=== PATIENT | female | born 1985 | race Two or more races ===

== ENCOUNTER 2017-02-12 16:02 | Inpatient (IN) | payer MEDICAID ==
[2017-02-12 16:45] LABS: APPEARANCE,URINE SLIGHTLY-CLOUDY; BILIRUBIN,URINE NEGATIVE (NEGATIVE); GLUCOSE, URINE NEGATIVE (NEGATIVE); KETONES,URINE NEGATIVE (NEGATIVE); LEUKOCYTE ESTERASE,URINE SMALL (NEGATIVE); NITRITE,URINE NEGATIVE (NEGATIVE); PROTEIN,URINE NEGATIVE (NEGATIVE); URINE SPECIFIC GRAVITY 1.006; UROBILINOGEN,URINE NEGATIVE mg/dL (<2.0)
[2017-02-12 16:50] LABS: AMNISURE (ROM) POSITIVE (NEGATIVE)
[2017-02-12] MEDS ORDERED: RINGERS SOLUTION,LACTATED 1,000 ML IV ONE (17:02)
[2017-02-12] MEDS ORDERED: FENTANYL/BUPIVACAINE/NS/PF 100 ML EPI PRN (17:02)
[2017-02-12] MEDS ORDERED: BENZOIN/ALOE VERA/STORAX/TOLU TINCTURE 60 ML TP PRN (17:02)
[2017-02-12] MEDS ORDERED: BUPIVACAINE HCL 0.25 % INJ/PF (2.5 MG/1 ML) 30 ML VIAL INFIL ONE (17:02)
[2017-02-12 17:09] LABS: URINE BARBITURATES SCREEN NEGATIVE; URINE METHADONE SCREEN NEGATIVE; URINE OPIATES LOW NEGATIVE; URINE PHENCYCLIDINE SCREEN NEGATIVE
[2017-02-12] MEDS ORDERED: PENICILLIN G-K 5 MILLION UNIT VIAL ONE ×3 (17:17→22:30)
[2017-02-12] MEDS ORDERED: OXYTOCIN/NORMAL SALINE 1,000 ML IV PRN (18:12)
[2017-02-12] MEDS ORDERED: OXYTOCIN/NORMAL SALINE 20 UNIT/1,000 ML RTUINJ ONE (18:15)
[2017-02-12 18:16] LABS: ABSOLUTE LYMPHOCYTES (AUTO) 1.7 10^3/uL (0.5-4.7); ABSOLUTE MONOCYTES (AUTO) 0.8 10^3/uL (0.1-1.4); ABSOLUTE NEUT (AUTO) 9.4 10^3/uL (1.7-8.2); BASOPHILS % (AUTO) 0.3 % (0-2); EOSINOPHILS % (AUTO) 0.4 % (0-6); HEMATOCRIT 35.6 % (36.0-47.0); HEMOGLOBIN 11.7 g/dL (12.0-15.5); HGB HCT DIFFERENCE -0.5; LYMPHOCYTES % (AUTO) 14.4 % (13-45); MEAN CORPUSCULAR HEMOGLOBIN 27.6 pg (27.0-33.4); MEAN CORPUSCULAR HGB CONC 32.9 g/dL (32.0-36.0); MEAN CORPUSCULAR VOLUME 84 fl (80-97); RED BLOOD COUNT 4.25 10^6/uL (3.72-5.28); RED CELL DISTRIBUTION WIDTH 14.8 % (11.5-14.0); SEGMENTED NEUTROPHILS % (AUTO) 77.9 % (42-78)
[2017-02-12] MEDS: RINGERS SOLUTION,LACTATED 1,000 ML IV PRN ×2 (18:22→19:34)
[2017-02-12] MEDS ORDERED: EPHEDRINE SULFATE INJ 50 MG/1 ML AMPULE ONE (18:45)
[2017-02-12] MEDS ORDERED: FENTANYL/BUPIVACAINE/NS/PF 200 MCG/100 ML RTUINJ EPI ONE (18:46)
[2017-02-12] MEDS ORDERED: BUPIVACAINE HCL 0.25 % INJ/PF (2.5 MG/1 ML) 30 ML VIAL ONE (18:46)
--- NOTE | 2017-02-12 20:01 | L&D Flow Sheet ---
LD Flowsheet Datetime Report Generated by CPN: 02/12/2017 20:00 Datetime: 02/12/2017 19:59 NBP Sys/Brandi/Mean (mmHg): 118 (QS system process) : 66 (QS system process) : 86 (QS system process) Pulse: 79 (QS system process) LaborFlag: Antepartum (QS system process) Datetime: 02/12/2017 19:58 NBP Sys/Brandi/Mean (mmHg): 134 (QS system process) : 67 (QS system process) : 94 (QS system process) Pulse: 84 (QS system process) Anesthesia Epidural Procedure: Test Dose (Ester Bazzi, RN) LaborFlag: Antepartum (QS system process) Datetime: 02/12/2017 19:57 NBP Sys/Brandi/Mean (mmHg): 137 (QS system process) : 77 (QS system process) : 102 (QS system process) Pulse: 85 (QS system process) Pulse: 99 (QS system process) SpO2 (%): 98 (QS system process) Anesthesia Epidural Procedure: Cath Placed (Ester Bazzi, RN) LaborFlag: Antepartum (QS system process) Datetime: 02/12/2017 19:56 NBP Sys/Brandi/Mean (mmHg): 135 (QS system process) : 76 (QS system process) : 99 (QS system process) Pulse: 81 (QS system process) LaborFlag: Antepartum (QS system process) Datetime: 02/12/2017 19:55 NBP Sys/Brandi/Mean (mmHg): 124 (QS system process) : 73 (QS system process) : 91 (QS system process) Pulse: 79 (QS system process) LaborFlag: Antepartum (QS system process) Datetime: 02/12/2017 19:54 NBP Sys/Brandi/Mean (mmHg): 127 (QS system process) : 77 (QS system process) : 96 (QS system process) Pulse: 92 (QS system process) LaborFlag: Antepartum (QS system process) Datetime: 02/12/2017 19:53 NBP Sys/Brandi/Mean (mmHg): 116 (QS system process) : 71 (QS system process) : 89 (QS system process) Pulse: 83 (QS system process) LaborFlag: Antepartum (QS system process) Datetime: 02/12/2017 19:52 NBP Sys/Brandi/Mean (mmHg): 122 (QS system process) : 74 (QS system process) : 92 (QS system process) Pulse: 82 (QS system process) Pulse: 81 (QS system process) SpO2 (%): 99 (QS system process) LaborFlag: Antepartum (QS system process) Datetime: 02/12/2017 19:51 NBP Sys/Brandi/Mean (mmHg): 117 (QS system process) : 77 (QS system process) : 91 (QS system process) Pulse: 82 (QS system process) LaborFlag: Antepartum (QS system process) Datetime: 02/12/2017 19:50 NBP Sys/Brandi/Mean (mmHg): 118 (QS system process) : 78 (QS system process) : 92 (QS system process) Pulse: 88 (QS system process) LaborFlag: Antepartum (QS system process) Datetime: 02/12/2017 19:48 NBP Sys/Brandi/Mean (mmHg): 114 (QS system process) NBP Sys/Brandi/Mean (mmHg): 113 (QS system process) : 75 (QS system process) : 72 (QS system process) : 88 (QS system process) : 87 (QS system process) Pulse: 81 (QS system process) Pulse: 79 (QS system process) LaborFlag: Antepartum (QS system process) Datetime: 02/12/2017 19:47 Pulse: 79 (QS system process) SpO2 (%): 99 (QS system process) LaborFlag: Antepartum (QS system process) Datetime: 02/12/2017 19:45 Communication Communication: Provider at Bedside (Ester Bazzi, RN) Datetime: 02/12/2017 19:34 Patient Care IV/Blood Work: New IV Bag Hung (Ester Bazzi, RN) Datetime: 02/12/2017 19:30 Uterine Activity Monitor Mode: External; Palpation (Ana Maria Barney, RN) Frequency (min): 9-10 (Ana Maria Barney, RN) Quality: Mild (Ana Maria Barney, RN) Duration (sec): 90-100 (Ana Maria Barnye, RN) Resting Tone (Palpate): Relaxed (Ana Maria Barney, RN) Assessment A Monitor Mode: External US (Ana Maria Barney, RN) FHR Baseline Rate : 150 (Ana Maria Barney, RN) Variability: Moderate 6-25 bpm (Ana Maria Barney, RN) Accelerations: 15X15 (Ana Maria Barney, RN) Decelerations: None (Ana Maria Barney, RN) Medications Pitocin (milliunit): Pitocin Remains (milliunits) @ (Annotations: 6) (Ana Maria Barney, RN) Datetime: 02/12/2017 19:24 Medications Pitocin (milliunit): Pitocin Increased to (milliunits) @ 6 (Ana Maria Barney, RN) Datetime: 02/12/2017 19:21 Communication Communication: RN at Bedside; Report Given to @ B. Bazzi, RN (Ana Maria Barney RN) Datetime: 02/12/2017 19:15 Uterine Activity Monitor Mode: External; Palpation (Ana Maria Barney RN) Frequency (min): x1 (Ana Maria Barney RN) Quality: Mild (Ana Maria Barney RN) Duration (sec): 110 (Ana Maria Barney RN) Resting Tone (Palpate): Relaxed (Ana Maria Barney, RN) Assessment A Monitor Mode: External US (Ana Maria Barney, RN) FHR Baseline Rate : 145 (Ana Maria Barney, RN) Variability: Moderate 6-25 bpm (Ana Maria Barney, RN) Accelerations: 15X15 (Ana Maria Barney, RN) Decelerations: None (Ana Maria Barney, RN) Medications Pitocin (milliunit): Pitocin Remains (milliunits) @ (Annotations: 4) (Ana Maria Barney, RN) Datetime: 02/12/2017 19:00 Uterine Activity Monitor Mode: External; Palpation (Ana Maria Barney, RN) Frequency (min): Occasional (Ana Maria Barney, RN) Quality: Mild (Ana Maria Barney, RN) Duration (sec): 70-120 (Ana Maria Barney, RN) Resting Tone (Palpate): Relaxed (Ana Maria Barney, RN) Assessment A Monitor Mode: External US (Ana Maria Barney, RN) FHR Baseline Rate : 145 (Ana Maria Barney, RN) Variability: Moderate 6-25 bpm (Ana Maria Barney, RN) Accelerations: 15X15 (Ana Maria Barney, RN) Decelerations: None (Ana Maria Barney, RN) Medications Pitocin (milliunit): Pitocin Remains (milliunits) @ (Annotations: 4) (Ana Maria Barney, RN) Datetime: 02/12/2017 18:56 Medications Pitocin (milliunit): Pitocin Increased to (milliunits) @ 4 (Ana Maria Barney, RN) Datetime: 02/12/2017 18:45 Uterine Activity Monitor Mode: External; Palpation (Ana Maria Barney, RN) Frequency (min): x2 (Ana Maria Barney, RN) Quality: Mild (Ana Maria Barney, RN) Duration (sec): 80-110 (Ana Maria Barney, RN) Resting Tone (Palpate): Relaxed (Ana Maria Barney, RN) Assessment A Monitor Mode: External US (Ana Maria Barney, RN) FHR Baseline Rate : 145 (Ana Maria Barney, RN) Variability: Moderate 6-25 bpm (Ana Maria Barney, RN) Accelerations: 15X15 (Ana Maria Barney, RN) Decelerations: None (Ana Maria Barney, RN) Medications Pitocin (milliunit): Pitocin Remains (milliunits) @ (Annotations: 2) (Ana Maria Barney, RN) Datetime: 02/12/2017 18:30 Uterine Activity Monitor Mode: External; Palpation (Ana Maria Barney, RN) Frequency (min): x1 (Ana Maria Barney, RN) Quality: Mild (Ana Maria Barney, RN) Duration (sec): 110 (Ana Maria Barney, RN) Resting Tone (Palpate): Relaxed (Ana Maria Barney, RN) Assessment A Monitor Mode: External US (Ana Maria Solorioon, RN) FHR Baseline Rate : 140 (Ana Mariajulian Solorioon, RN) Variability: Minimal - Undetectable to <=5 bpm (Ana Maria Solorioon, RN) Accelerations: 15X15 (Ana Maria Barney, RN) Decelerations: None (Ana Maria Barney, RN) Medications Pitocin (milliunit): Pitocin Remains (milliunits) @ (Annotations: 2) (Ana Maria Solorioon, RN) Datetime: 02/12/2017 18:23 Medications Pitocin (milliunit): Pitocin Started (milliunits) @ 2 (Ana Maria Barney RN) Datetime: 02/12/2017 18:22 Antibiotics: Penicillin IV (Units) @ 5,000,000 (Ana Maria Barney RN) Datetime: 02/12/2017 18:18 NBP Sys/Brandi/Mean (mmHg): 123 (QS system process) : 71 (QS system process) : 91 (QS system process) Pulse: 90 (QS system process) Temperature (F): 98.6 (Ana Maria Barney RN) Temperature (C): 37.0 (QS system process) Temperature Route: Oral (Ana Maria Barney RN) LaborFlag: Antepartum (QS system process) Datetime: 02/12/2017 18:15 Uterine Activity Monitor Mode: External; Palpation (Ana Maria Barney, RN) Frequency (min): x1 (Ana Maria Barney, RN) Quality: Mild (Ana Maria Solorioon, RN) Duration (sec): 100 (Ana Maria Solorioon, RN) Resting Tone (Palpate): Relaxed (Ana Maria Barney, RN) Assessment A Monitor Mode: External US (Ana Maria Barney, RN) FHR Baseline Rate : 145 (Ana Maria Barney, RN) Variability: Minimal - Undetectable to <=5 bpm (Ana Maria Barney, RN) Accelerations: 15X15 (Ana Maria Barney, RN) Decelerations: None (Ana Maria Barney, RN) Datetime: 02/12/2017 18:00 Uterine Activity Monitor Mode: External; Palpation (Ana Maria Barney, RN) Frequency (min): x1 (Ana Maria Barney, RN) Quality: Mild (Ana Maria Barney, RN) Duration (sec): 120 (Ana Maria Barney, RN) Resting Tone (Palpate): Relaxed (Ana Maria Barney, RN) Assessment A Monitor Mode: External US (Ana Maria Barney, RN) FHR Baseline Rate : 140 (Ana Maria Barney, RN) Variability: Minimal - Undetectable to <=5 bpm (Ana Maria Barney, RN) Accelerations: 15X15 (Ana Maria Barney, RN) Decelerations: None (Ana Maria Barney, RN) Datetime: 02/12/2017 17:48 NBP Sys/Brandi/Mean (mmHg): 115 (QS system process) : 79 (QS system process) : 90 (QS system process) Pulse: 88 (QS system process) LaborFlag: Antepartum (QS system process) Datetime: 02/12/2017 17:45 Uterine Activity Monitor Mode: External; Palpation (Ana Maria Barney, RN) Frequency (min): occasional (Ana Maria Barney, RN) Quality: Mild (Ana Maria Barney, RN) Duration (sec): 90-120 (Ana Maria Barney, RN) Resting Tone (Palpate): Relaxed (Ana Maria Barney, RN) Assessment A Monitor Mode: External US (Ana Maria Barney, RN) FHR Baseline Rate : 145 (Ana Maria Barney, RN) Variability: Moderate 6-25 bpm (Ana Maria Barney, RN) Accelerations: 15X15 (Ana Maria Barney, RN) Decelerations: None (Ana Maria Barney, RN) Datetime: 02/12/2017 17:15 Uterine Activity Monitor Mode: External; Palpation (Ana Maria Barney, RN) Frequency (min): occasional (Ana Maria Barney, RN) Quality: Mild (Ana Maria Barney, RN) Duration (sec): 60-80 (Ana Maria Barney, RN) Resting Tone (Palpate): Relaxed (Ana Maria Barney, RN) Assessment A Monitor Mode: External US (Ana Maria Barney, RN) FHR Baseline Rate : 145 (Ana Maria Barney, RN) Variability: Moderate 6-25 bpm (Ana Maria Barney, RN) Accelerations: 15X15 (Ana Maria Barney, RN) Decelerations: None (Ana Maria Barney, RN) Datetime: 02/12/2017 16:50 NBP Sys/Brandi/Mean (mmHg): 96 (QS system process) : 52 (QS system process) : 69 (QS system process) Pulse: 84 (QS system process) LaborFlag: Antepartum (QS system process) Datetime: 02/12/2017 16:48 NBP Sys/Brandi/Mean (mmHg): 96 (QS system process) : 53 (QS system process) : 69 (QS system process) Pulse: 86 (QS system process) LaborFlag: Antepartum (QS system process) Datetime: 02/12/2017 16:44 Pain Pain Scale: 2 (Ana Maria Barney RN) Pain Presence: Intermittent (Ana Maria Barney RN) Pain Type: Cramping (Ana Maria Barney RN) Pain Location: Abdomen; Back (Ana Maria Barney RN) Pain Goal: 0 (Ana Maria Barney RN) Pain Relief Measures: Comfort Measures (Ana Maria Barney RN) Pain Coping: Breathing Through Contractions (Ana Maria Barney RN) Vaginal Exam Vaginal Bleeding: None (Ana Maria Barney, CHIP) Maternal Assessment Level of Consciousness: Fully Conscious (Ana Maria Barney RN) DTR's/Clonus: DTRs 1+ (Ana Maria Barney RN) Headache: Denies (Ana Maria Barney RN) Breath Sounds, Left: Clear and Equal (Ana Maria Barney RN) Breath Sounds, Right: Clear and Equal (Ana Maria Barney RN) Nausea/Vomiting: Denies (Ana Maria Barney RN) RUQ Epigastric Pain: Denies (Ana Maria Barney, RN) LaborFlag: Antepartum (QS system process) Datetime: 02/12/2017 16:41 Patient Position/Activity: Right Tilt; Semi-Fowlers (Ana Maria Barney, RN) Datetime: 02/12/2017 16:38 Comments: Monitors applied, explained to pt. (Ana Maria Barney, RN) Datetime: 02/12/2017 16:31 Vital Signs Stage of : Antepartum Rachel Barney RN)
[2017-02-12] MEDS ORDERED: PENICILLIN G-K 5 MILLION UNIT VIAL IV SCH (22:30)
[2017-02-12] MEDS ORDERED: PENICILLIN G-K 5 MILLION UNIT VIAL IV PRN (22:36)
[2017-02-12] MEDS ORDERED: MISOPROSTOL 0.2 MG TABLET ONE (22:41)
[2017-02-12] MEDS ORDERED: LIDOCAINE 1% INJ-PF (10 MG/ML) 30 ML SDV ONE (22:41)
[2017-02-12] MEDS ORDERED: OXYTOCIN/NORMAL SALINE 0 UNIT/0 ML RTUINJ ONE (22:42)
[2017-02-12] MEDS ORDERED: PENICILLIN G POTASSIUM 2,500,000 UNIT in DEXTROSE 5%-WATER 50 ML IV SCH (22:45)
[2017-02-13] MEDS ORDERED: OXYTOCIN/NORMAL SALINE 1,000 ML IV PRN (00:43)
[2017-02-13] MEDS ORDERED: DIPHENHYDRAMINE HCL 25 MG CAPSULE PO PRN (00:43)
[2017-02-13] MEDS ORDERED: PROMETHAZINE HCL INJ 25 MG/1 ML VIAL IV PRN (00:43)
[2017-02-13] MEDS ORDERED: DIBUCAINE 1% OINTMENT 28 GM TP PRN (00:43)
[2017-02-13] MEDS ORDERED: ACETAMINOPHEN WITH CODEINE #3 TABLET PO PRN ×2 (00:43)
[2017-02-13] MEDS ORDERED: MEASLES,MUMPS&RUBELLA VACC/PF 0.5 ML VIAL SUBCUT PRN (00:43)
[2017-02-13] MEDS ORDERED: PROMETHAZINE HCL 25 MG TABLET PO PRN (00:43)
[2017-02-13] MEDS ORDERED: PSEUDOEPHEDRINE HCL 30 MG TABLET PO PRN (00:43)
[2017-02-13] MEDS ORDERED: ACETAMINOPHEN 650 MG SUPP.RECT PR PRN (00:43)
[2017-02-13] MEDS ORDERED: MAGNESIUM HYDROXIDE SUSP 30 ML UDCUP PO PRN (00:43)
[2017-02-13] MEDS ORDERED: BENZOCAINE/MENTHOL AEROSOL SPRAY 56 ML TOP PRN (00:43)
[2017-02-13] MEDS ORDERED: ZOLPIDEM TARTRATE 5 MG TABLET PO PRN (00:43)
[2017-02-13] MEDS ORDERED: DIPH/PERTUSS(ACELL)/TETANUS VAC/PF 0.5 ML SYR (>=10YO) IM PRN (00:43)
[2017-02-13] MEDS ORDERED: NA PHOS,M-B/NA PHOS,DI-BA (ADULT) 133 ML ENEMA PR PRN (00:43)
[2017-02-13] MEDS ORDERED: GLYCERIN/WITCH HAZEL LEAF 1 EACH MED..PAD TP PRN (00:43)
[2017-02-13] MEDS ORDERED: PROMETHAZINE HCL 25 MG SUPP.RECT PR PRN (00:43)
[2017-02-13] MEDS ORDERED: IBUPROFEN 800 MG TABLET ONE (00:44)
--- NOTE | 2017-02-13 01:13 | Delivery Summary ---
Del Sum A-C Datetime Report Generated by CPN: 02/13/2017 01:13 ADMISSION DATA Chief Complaint: Suspected Ruptured Membranes Indication for Induction: PROM Admission Impression: Term, Intrauterine Admit Provider Comments: pit induction, pcn gbs porphylaxis as 27 hr rom, epidural DELIVERY PERSONNEL Delivery Doctor:: Stephanie Obrien MD Labor and Delivery Nurse:: Ester Bazzi RNportfolio specialist Nurse:: Carli Durand RN Professor Of Journalism:: Jerica Ely RN Step Down Specialist/SKILLED NURSING PROFESSIONAL: Amanda Hernandez, RECREATION INSTRUCTOR MATERNAL INFORMATION Delivery Anesthesia: Epidural Medications After Delivery: Pitocin Bolus-Please Comment; Pitocin Drip 20 Units/1000ml NSS Meds After Delivery Comment: NS with Pitocin 20 units/Liter IVF bolus Maternal Complications: Premature Rupture of Membranes Provider Comments: Pt now s/p over intact perineum. Head delivered OA. BRAND PROTECTION MANAGER/OP bulb suctioned. Shoulders and body delivered easily. Cord clamped and cut. Placenta spontaneous and intact. Mom and baby doing well. LABOR SUMMARY [facility]: 03/03/2017 00:00 No. Babies in Womb: 1 Labor Anesthesia: Epidural LABOR INFORMATION Reason for Induction: Not Applicable Onset of Labor: 02/12/2017 20:19 Complete Dilatation: 02/12/2017 22:28 Oxytocin: Augmentation Group B Beta Strep: Negative Antibiotics # of Doses: 2 Antibiotics Time of Last Dose: 2226 Name of Antibiotic Given: PCN Steroids Given: None Reason Steroids Not Administered: Not Applicable MEMBRANES Membranes Rupture Method: Spontaneous Rupture of Membranes: 02/11/2017 15:00 Length of Rupture (hr): 31.80 Amniotic Fluid Color: Clear Amniotic Fluid Amount: Small Amniotic Fluid Odor: Normal STAGES OF LABOR Stage 1 hr: 2 Stage 1 min: 9 Stage 2 hr: 0 Stage 2 min: 20 Stage 3 hr: 0 Stage 3 min: 4 Total Time in Labor hr: 2 Total Time in Labor min: 33 VAGINAL DELIVERY Episiotomy: None Laceration Type: None CSECTION DELIVERY Primary Indication: N/A Secondary Indication: N/A CSection Incision: N/A BABY A INFORMATION Delivery Date/Time: 02/12/2017 22:48 Method of Delivery: Vaginal Born in Route : No : N/A Forceps: N/A Vacuum Extraction: N/A Shoulder Dystocia : No PRESENTATION/POSITION BABY A Presentation: Cephalic Cephalic Presentation: Vertex Vertex Position: Right Occipital Anterior Breech Presentation: N/A PLACENTA INFORMATION BABY A Placenta Delivery Time : 02/12/2017 22:52 Placenta Method of Delivery: Spontaneous Placenta Status: Delivered SCORES BABY A Heart Rate 1 min: >100 bpm Resp Effort 1 min: Good Cry Reflex Irritability 1 min: Cough or Sneeze or Pulls Away Muscle Tone 1 min: Active Motion Color 1 min: Body [place], Extremities Blue Resuscitation Effort 1 min: Tactile Stimulation SCORE 1 MIN: 9 Heart Rate 5 min: >100 bpm Resp Effort 5 min: Good Cry Reflex Irritability 5 min: Cough or Sneeze or Pulls Away Muscle Tone 5 min: Active Motion Color 5 min: Body [place], Extremities Blue Resuscitation Effort 5 min: Tactile Stimulation SCORE 5 MIN: 9 INFORMATION BABY A Gestational Age at Delivery: 37.2 Gestational Status: Early Term- 37- 38.6 Weeks Outcome : Liveborn Condition : Stable Infant Sex: Female IDENTIFICATION BABY A Infant Verification Date/Time: 02/12/2017 23:00 ID Band Number: [id number] Mother's Name Verified: Yes RN Verifying Infant: S. Lattibeaudeir, RN _ B. Bazzi, RN WEIGHT/LENGTH BABY A Infant Birthweight (gm): 2790 Infant Weight (lb): 6 Weight (oz): 2 Infant Length (in): 19.00 Length (cm): 48.26 CORD INFORMATION BABY A No. Cord Vessels: 3 Nuchal Cord : Around Neck x1, Loose Cord Blood Taken: Yes-For Storage (Mom's Blood type +) Suction: None ASSESSMENT BABY A Complications: None Physical Findings at Delivery: Within Normal Limits Infant Respirations: Appears Normal Skin to Skin: Yes Skin to Skin Time (min): 40 Infant Care By: Renee Durand RN Transferred To: Remains with Mother SIGNATURES Signature: with User ID: [email or web address]
--- NOTE | 2017-02-13 01:23 | Admission Physical ---
Datetime Report Generated by CPN: 02/13/2017 01:22 CURRENT ADMISSION Hx Assessment: The History has been Reviewed and is Current Chief Complaint: Suspected Ruptured Membranes Indication for Induction: PROM Admit Plan: Initiate Labor Induction Protocol ALLERGIES Medication Allergies: No Medication Allergies: No Known Allergies (01/22/2014) Latex: No Latex Allergies Food Allergies: none Environmental Allergies: none OBSTETRICAL HISTORY EDC: 03/03/2017 00:00 : 6 Para: 4 Term: 3 : 1 SAB: 1 IAB: 0 Ectopic: 0 Livin Cesareans: 0 VBACs: 0 Multiple Births: 0 Gestational Diabetes: No Rh Sensitization: No Incompetent Cervix: No AMI: No Infertility: No ART Treatment: No Uterine Anomaly: No IUGR: No Hx Previous C/S: No Macrosomia: No Hx Loss/Stillborn: No PIH: No Hx : No Placenta Previa/Abruption: No Depression/PP Depression: No PTL/PROM: No Post Hemorrhage: No Current Procedures: Ultrasound Obstetrical History Comments: G1- male at 36 weeks (2005) G2- Progesterone shots. female born at 40 weeks (2009). G3- SAB at 6 wks (2010) G4 -Progesterone shots. female born at 40 weeks (2011). G5- female born at 37.6 weeks (2013). G6- Current SEE RECORDS Alcohol: No Marijuana : No Cocaine: No Other Illicit Drugs: No Cigarettes: Never Smoker. [id number] MEDICAL HISTORY Diabetes: No Blood Transfusion: No Pulmonary Disease (Asthma, TB): No Breast Disease: No Hypertension: No Wood Scrap Handler Surgery: No Heart Disease: No Hosp/Surgery: Yes Autoimmune Disorder: No Anesthetic Complications: No Kidney Disease: No Abnormal Pap Smear: No Neuro/Epilepsy: No Psychiatric Disorders: Yes Other Medical Diseases: No Hepatitis/Liver Disease: No Significant Family History: No Varicosities/Phlebitis: No Trauma/Violence : No Thyroid Dysfunction: No Medical History Comments: x 4, Hx of anxiety and panic attacks INFECTIOUS HISTORY Gonorrhea: No Genital Herpes: No Chlamydia: Yes Tuberculosis: No Syphilis: No Hepatitis: No HIV/AIDS Exposure: No Rash or Viral Illness: No HPV: No Infectious History Comments: Hx of chlamydia in 2013 PHYSICAL EXAM General: Normal HEENT: Normal Neurologic: Normal Thyroid: Normal Heart: Normal Lungs: Normal Breast: Normal Back: Normal Abdomen: Normal Genitourinary Exam: Normal Extremities: Normal DTRs: Normal Pelvic Type: Adequate Physical Exam Comments: efw 7 pounds MEMBRANES Membranes: Ruptured Amniotic Fluid Color: Clear FETUS A EGA: 37.2 FHR Category: Category I Admit Comment: pit induction, pcn gbs porphylaxis as 27 hr rom, epidural PLANS FOR LABOR AND DELIVERY Labor and Delivery: None Pain Management: Epidural Feeding Preference: Breast Benefit of Breast Feed Discussed: Yes Circumcision: N/A INFORMED CONSENT Signature: with User ID: [email or web address]
[2017-02-13] MEDS: IBUPROFEN 800 MG TABLET PO SCH ×3 (06:47→21:59)
--- NOTE | 2017-02-13 07:01 | L&D Flow Sheet ---
LD Flowsheet Datetime Report Generated by CPN: 02/13/2017 07:00 Datetime: 02/13/2017 00:56 NBP Sys/Brandi/Mean (mmHg): 113 (QS system process) : 70 (QS system process) : 86 (QS system process) Pulse: 78 (QS system process) Datetime: 02/12/2017 23:50 Stage of : Recovery (Ester Bazzi, RN) Pain Scale: 0 (Ester Bazzi, RN) Pain Presence: None/Denies (Ester Bazzi, RN) Pain Type: N/A (Ester Bazzi, RN) Datetime: 02/12/2017 23:30 Stage of : Recovery (Ester Bazzi, RN) Pain Scale: 0 (Ester Bazzi, RN) Pain Presence: None/Denies (Ester Bazzi, RN) Pain Type: N/A (Ester Bazzi, RN) Datetime: 02/12/2017 23:15 Stage of : Recovery (Ester Bazzi, RN) Respirations: 18 (Ester Bazzi, RN) Temperature (F): 98.1 (Ester Bazzi, RN) Temperature (C): 36.7 (QS system process) Temperature Route: Oral (Ester Bazzi, RN) Pain Scale: 0 (Ester Bazzi, RN) Pain Presence: None/Denies (Ester Bazzi, RN) Pain Type: N/A (Ester Bazzi, RN) Datetime: 02/12/2017 23:02 NBP Sys/Brandi/Mean (mmHg): 118 (QS system process) : 73 (QS system process) : 91 (QS system process) Pulse: 80 (QS system process) Datetime: 02/12/2017 23:00 Stage of : Recovery (Ester Bazzi, RN) Respirations: 18 (Ester Bazzi, RN) Pain Assessment Comments: (Ester Bazzi, RN) Datetime: 02/12/2017 22:52 Stage 2 Comments: three vessel cord and intact placenta in christopher position (Jerica Solis, RN) Datetime: 02/12/2017 22:50 NBP Sys/Brandi/Mean (mmHg): 113 (QS system process) : 70 (QS system process) : 87 (QS system process) Pulse: 88 (QS system process) LaborFlag: Labor (QS system process) Datetime: 02/12/2017 22:49 Stage 2 Comments: cord blood obtained (Jerica [facility], RN) Datetime: 02/12/2017 22:48 Stage of : Labor (Ester Bazzi, RN) Monitor Mode: External (Ester Bazzi RN) Frequency (min): 2-3 (Ester Bazzi RN) Quality: Strong (Ester Bazzi RN) Duration (sec): 60-90 (Ester Bazzi RN) Pattern: Normal: <= 5 Contractions in 10 Minutes (Ester Bazzi RN) Resting Tone (Palpate): Relaxed (Ester Bazzi RN) Monitor Mode: External US (Ester Bazzi RN) Monitor Interventions for FHR: Ultrasound Adjusted (Ester Bazzi RN) FHR Baseline Rate : 140 (Ester Bazzi RN) Variability: Minimal - Undetectable to <=5 bpm (Ester Bazzi RN) Accelerations: None (Ester Bazzi RN) Decelerations: Early (Ester Bazzi RN) Comments: audible early decels (Ester Bazzi RN) Pitocin (milliunit): Pitocin Remains (milliunits) @ 12 (Ester Bazzi RN) Stage 2 Comments: delivery of viable female . directly skin to skin on abdomen (Jerica Ely RN) Communication: RN at Bedside; RN Reviewed Strip (Ester Bazzi RN) Datetime: 02/12/2017 22:45 Pushing: Coached on Pushing; Urge to Push (Jerica Ely RN) Pushing Position: Pushing with Contractions (Jerica Ely RN) Pushing Progress: Rectal Bulging; Presenting Part Visible; with Pushing (Jerica Ely RN) Datetime: 02/12/2017 22:44 Membranes Ruptured Date/Time: 02/11/2017 15:00 (Jerica Solis ) Membranes Rupture Method: Spontaneous (Jericashira Ely ) Amniotic Fluid Color: Clear (Jerica Logannenita ) Amniotic Fluid Amount: Small (Jerica Logannenita, ) Amniotic Fluid Odor: Normal (Jerica Kelseymagda, ) Datetime: 02/12/2017 22:41 Pushing: Coached on Pushing (Jerica Kelseymagda, ) Pushing Position: Pushing with Contractions (Jerica Logannenita, ) Stage 2 Comments: pushing with contractions (Jerica Logannenita, ) Datetime: 02/12/2017 22:36 Stage 2 Comments: Dr. Obrien at bedside for imminent delivery, patient placed in lithotomy position and bed prepared for delivery (Jerica Ely RN) Datetime: 02/12/2017 22:30 Stage of : Labor (Ester Bazzi, CHIP) Respirations: 18 (Ester Bazzi, CHIP) Monitor Mode: External; Palpation (Ester Bazzi, CHIP) Frequency (min): 2-2.5 (Ester Bazzi RN) Quality: Strong (Ester Bazzi RN) Duration (sec): 80-120 (Ester Bazzi, CHIP) Pattern: Normal: <= 5 Contractions in 10 Minutes (Ester Bazzi RN) Resting Tone (Palpate): Relaxed (Ester Bazzi RN) Monitor Mode: External US (Ester Bazzi, CHIP) Monitor Interventions for FHR: Ultrasound Adjusted (Ester Bazzi, RN) FHR Baseline Rate : 140 (Ester Bazzi, RN) Variability: Minimal - Undetectable to <=5 bpm (Ester Bazzi, CHIP) Decelerations: Early (Ester Bazzi RN) Comments: No audible accels, Audible early decelerations (Ester Bazzi, CHIP) Pain Scale: 0 (Ester Bazzi RN) Pain Presence: Intermittent (Ester Bazzi RN) Pain Type: Pressure (Ester Bazzi, RN) Pitocin (milliunit): Pitocin Remains (milliunits) @ 12 (Ester Bazzi, RN) Communication: RN at Bedside; RN Reviewed Strip (Ester Bazzi, RN) LaborFlag: Labor (QS system process) Datetime: 02/12/2017 22:28 Dilatation (cm): 10.0 (Ester Bazzi, RN) Effacement (%): 100 (Ester Bazzi, RN) Station: 2 (Ester Bazzi, RN) Exam by: B Bazzi, RN (Ester Bazzi, RN) Datetime: 02/12/2017 22:26 Antibiotics: Penicillin IV (Units) @ 2.5 million units (Ester Bazzi, RN) Datetime: 02/12/2017 22:21 NBP Sys/Brandi/Mean (mmHg): 113 (QS system process) : 67 (QS system process) : 85 (QS system process) Pulse: 72 (QS system process) LaborFlag: Labor (QS system process) Datetime: 02/12/2017 22:15 Stage of : Labor (Ester Bazzi, RN) Monitor Mode: External; Palpation (Ester Bazzi, RN) Frequency (min): 2-3 (Ester Bazzi, RN) Quality: Strong (Ester Bazzi, RN) Duration (sec): 70-120 (Ester Bazzi, RN) Pattern: Normal: <= 5 Contractions in 10 Minutes (Ester Bazzi, RN) Resting Tone (Palpate): Relaxed (Ester Bazzi, RN) Monitor Mode: External US (Ester Bazzi, RN) FHR Baseline Rate : 140 (Ester Bazzi, RN) Variability: Minimal - Undetectable to <=5 bpm (Ester Bazzi, RN) Accelerations: 15X15 (Ester Bazzi, RN) Pitocin (milliunit): Pitocin Remains (milliunits) @ 12 (Ester Bazzi, RN) Communication: RN at Bedside; RN Reviewed Strip (Ester Bazzi, CHIP) Datetime: 02/12/2017 22:00 Stage of : Labor (Ester Bazzi, RN) Monitor Mode: External; Palpation (Ester Bazzi, RN) Monitor Interventions for UA: [place] Adjusted (Ester Bazzi, RN) Frequency (min): 1.5-2.5 (Ester Bazzi, RN) Quality: Moderate to Strong (Ester Bazzi, RN) Duration (sec): 70-100 (Ester Bazzi, RN) Pattern: Normal: <= 5 Contractions in 10 Minutes (Ester Bazzi, RN) Resting Tone (Palpate): Relaxed (Ester Bazzi, RN) Monitor Mode: External US (Ester Bazzi, RN) FHR Baseline Rate : 145 (Ester Bazzi, RN) Variability: Moderate 6-25 bpm (Ester Bazzi, RN) Accelerations: 15X15 (Ester Bazzi, RN) Decelerations: None (Ester Bazzi, RN) Pitocin (milliunit): Pitocin Remains (milliunits) @ 12 (Ester Bazzi, RN) Communication: RN at Bedside; RN Reviewed Strip (Ester Bazzi, RN) Datetime: 02/12/2017 21:50 Monitor Interventions for UA: [place] Adjusted (Ester Bazzi, RN) Datetime: 02/12/2017 21:49 NBP Sys/Brandi/Mean (mmHg): 120 (QS system process) : 79 (QS system process) : 95 (QS system process) Pulse: 81 (QS system process) Pitocin (milliunit): Pitocin Increased to (milliunits) @ 12 (Ester Bazzi, RN) LaborFlag: Labor (QS system process) Datetime: 02/12/2017 21:45 Stage of : Labor (Ester Bazzi, RN) Monitor Mode: External (Ester Bazzi, RN) Frequency (min): 2-2.5 (Ester Bazzi, RN) Quality: Moderate to Strong (Ester Bazzi, RN) Duration (sec): 60-100 (Ester Bazzi, RN) Pattern: Normal: <= 5 Contractions in 10 Minutes (Ester Bazzi, RN) Resting Tone (Palpate): Relaxed (Ester Bazzi, RN) Monitor Mode: External US (Ester Bazzi, RN) FHR Baseline Rate : 140 (Ester Bazzi, RN) Variability: Minimal - Undetectable to <=5 bpm (Ester Bazzi, RN) Accelerations: None (Ester Bazzi, RN) Pitocin (milliunit): Pitocin Remains (milliunits) @ 10 (Ester Bazzi, RN) Communication: RN at Bedside; RN Reviewed Strip (Ester Bazzi, RN) Datetime: 02/12/2017 21:41 NBP Sys/Brandi/Mean (mmHg): 113 (QS system process) : 82 (QS system process) : 93 (QS system process) Pulse: 80 (QS system process) LaborFlag: Labor (QS system process) Datetime: 02/12/2017 21:30 Stage of : Labor (Ester Bazzi, RN) Monitor Mode: External (Ester Bazzi, RN) Frequency (min): 1-4.5 (Ester Bazzi, RN) Quality: Moderate to Strong (Ester Bazzi, RN) Duration (sec): 60-90 (Ester Bazzi, RN) Pattern: Normal: <= 5 Contractions in 10 Minutes (Ester Bazzi, RN) Resting Tone (Palpate): Relaxed (Ester Baziz, RN) Monitor Mode: External US (Ester Bazzi, RN) FHR Baseline Rate : 150 (Ester Bazzi, RN) Variability: Moderate 6-25 bpm (Ester Bazzi, RN) Accelerations: None (Ester Bazzi, RN) Pitocin (milliunit): Pitocin Remains (milliunits) @ 10 (Ester Bazzi, RN) Communication: RN at Bedside; RN Reviewed Strip (Ester Bazzi, RN) Datetime: 02/12/2017 21:29 NBP Sys/Brandi/Mean (mmHg): 116 (QS system process) : 73 (QS system process) : 90 (QS system process) Pulse: 76 (QS system process) LaborFlag: Labor (QS system process) Datetime: 02/12/2017 21:20 NBP Sys/Brandi/Mean (mmHg): 118 (QS system process) : 72 (QS system process) : 90 (QS system process) Pulse: 74 (QS system process) LaborFlag: Labor (QS system process) Datetime: 02/12/2017 21:15 Stage of : Labor (Ester Bazzi, RN) Monitor Mode: External; Palpation (Ester Bazzi, RN) Frequency (min): 2-3 (Ester Bazzi, RN) Quality: Moderate to Strong (Ester Bazzi, RN) Duration (sec): 70-90 (Ester Bazzi, RN) Pattern: Normal: <= 5 Contractions in 10 Minutes (Ester Bazzi, RN) Resting Tone (Palpate): Relaxed (Ester Bazzi, RN) Monitor Mode: External US (Ester Bazzi, RN) FHR Baseline Rate : 145 (Ester Bazzi, RN) Variability: Moderate 6-25 bpm (Ester Bazzi, RN) Accelerations: 15X15 (Ester Bazzi, RN) Pitocin (milliunit): Pitocin Remains (milliunits) @ 10 (Ester Bazzi, RN) Communication: RN at Bedside; RN Reviewed Strip (Ester Bazzi, RN) Datetime: 02/12/2017 21:09 NBP Sys/Brandi/Mean (mmHg): 119 (QS system process) : 66 (QS system process) : 85 (QS system process) Pulse: 93 (QS system process) LaborFlag: Labor (QS system process) Datetime: 02/12/2017 21:00 Stage of : Labor (Ester Bazzi, RN) Respirations: 18 (Ester Bazzi, RN) Monitor Mode: External; Palpation (Ester Bazzi, RN) Frequency (min): 2-4 (Ester Bazzi, RN) Quality: Moderate to Strong (Ester Bazzi, RN) Duration (sec): 70-120 (Ester Bazzi, RN) Pattern: Normal: <= 5 Contractions in 10 Minutes (Ester Bazzi, RN) Resting Tone (Palpate): Relaxed (Ester Bazzi, RN) Monitor Mode: External US (Ester Bazzi, RN) FHR Baseline Rate : 150 (Ester Bazzi, RN) Variability: Moderate 6-25 bpm (Ester Bazzi, RN) Accelerations: 15X15 (Ester Bazzi, RN) Decelerations: None (Ester Bazzi, RN) Pain Scale: 1 (Ester Bazzi, RN) Pain Presence: Intermittent (Ester Bazzi, RN) Pain Type: Pressure (Ester Bazzi, RN) Pain Coping: Talking Through Contractions (Ester Bazzi, RN) Pitocin (milliunit): Pitocin Remains (milliunits) @ 10 (Ester Bazzi, RN) Communication: RN at Bedside; RN Reviewed Strip (Ester Bazzi, RN) LaborFlag: Labor (QS system process) Datetime: 02/12/2017 20:59 NBP Sys/Brandi/Mean (mmHg): 115 (QS system process) : 67 (QS system process) : 84 (QS system process) Pulse: 80 (QS system process) LaborFlag: Labor (QS system process) Datetime: 02/12/2017 20:57 Pitocin (milliunit): Pitocin Increased to (milliunits) @ 10 (Ester Bazzi, RN) Datetime: 02/12/2017 20:49 NBP Sys/Brandi/Mean (mmHg): 114 (QS system process) : 67 (QS system process) : 86 (QS system process) Pulse: 78 (QS system process) LaborFlag: Labor (QS system process) Datetime: 02/12/2017 20:45 Stage of : Labor (Ester Bazzi, RN) Monitor Mode: External; Palpation (Ester Bazzi, RN) Frequency (min): 2.5-4 (Ester Bazzi, RN) Quality: Moderate (Ester Bazzi, RN) Duration (sec): 60-110 (Ester Bazzi, RN) Pattern: Normal: <= 5 Contractions in 10 Minutes (Ester Bazzi, RN) Resting Tone (Palpate): Relaxed (Ester Bazzi, RN) Monitor Mode: External US (Ester Bazzi, RN) FHR Baseline Rate : 150 (Ester Bazzi, RN) Variability: Moderate 6-25 bpm (Ester Bazzi, RN) Accelerations: 15X15 (Ester Bazzi, RN) Decelerations: None (Ester Bazzi, RN) Pitocin (milliunit): Pitocin Remains (milliunits) @ 8 (Ester Bazzi, RN) Communication: RN at Bedside; RN Reviewed Strip (Ester Bazzi, RN) Datetime: 02/12/2017 20:40 NBP Sys/Brandi/Mean (mmHg): 111 (QS system process) : 63 (QS system process) : 80 (QS system process) Pulse: 74 (QS system process) LaborFlag: Labor (QS system process) Datetime: 02/12/2017 20:31 NBP Sys/Brandi/Mean (mmHg): 114 (QS system process) : 94 (QS system process) : 101 (QS system process) Pulse: 73 (QS system process) LaborFlag: Labor (QS system process) Datetime: 02/12/2017 20:30 Stage of : Labor (Ester Bazzi, RN) Monitor Mode: External; Palpation (Ester Bazzi, RN) Frequency (min): 3-6 (Ester Bazzi, RN) Quality: Moderate (Ester Bazzi, RN) Duration (sec): 70-90 (Ester Bazzi, RN) Pattern: Normal: <= 5 Contractions in 10 Minutes (Ester Bazzi, RN) Resting Tone (Palpate): Relaxed (Ester Bazzi, RN) Monitor Mode: External US (Ester Bazzi, RN) FHR Baseline Rate : 140 (Ester Bazzi, RN) Variability: Moderate 6-25 bpm (Ester Bazzi, RN) Accelerations: 15X15 (Ester Bazzi, RN) Decelerations: None (Ester Bazzi, RN) Pitocin (milliunit): Pitocin Remains (milliunits) @ 8 (Ester Bazzi, RN) Communication: RN at Bedside; RN Reviewed Strip (Ester Bazzi, RN) Datetime: 02/12/2017 20:20 Pitocin (milliunit): Pitocin Increased to (milliunits) @ 8 (Ester Bazzi, RN) Datetime: 02/12/2017 20:19 NBP Sys/Brandi/Mean (mmHg): 116 (QS system process) : 57 (QS system process) : 77 (QS system process) Pulse: 96 (QS system process) Dilatation (cm): 6.0 (Ester Bazzi, RN) Effacement (%): 90 (Ester Bazzi, RN) Station: -2 (Ester Bazzi, RN) Exam by: Rosaline Bazzi RN (Ester Bazzi, RN) Vaginal Bleeding: None (Ester Bazzi, RN) Cervix, Consistency: Soft (Ester Bazzi, RN) Cervix, Position: Midposition (Ester Bazzi, RN) LaborFlag: Labor (QS system process) Datetime: 02/12/2017 20:18 NBP Sys/Branid/Mean (mmHg): 123 (QS system process) : 58 (QS system process) : 83 (QS system process) Pulse: 75 (QS system process) I/O Interventions: Hinds Cath Inserted (Ester Bazzi, RN) LaborFlag: Labor (QS system process) Datetime: 02/12/2017 20:17 NBP Sys/Brandi/Mean (mmHg): 129 (QS system process) : 60 (QS system process) : 87 (QS system process) Pulse: 75 (QS system process) LaborFlag: Labor (QS system process) Datetime: 02/12/2017 20:16 NBP Sys/Brandi/Mean (mmHg): 122 (QS system process) : 56 (QS system process) : 80 (QS system process) Pulse: 75 (QS system process) LaborFlag: Labor (QS system process) Datetime: 02/12/2017 20:15 Stage of : Labor (Ester Bazzi, RN) NBP Sys/Brandi/Mean (mmHg): 121 (QS system process) : 57 (QS system process) : 82 (QS system process) Pulse: 76 (QS system process) Respirations: 18 (Ester Bazzi, RN) Temperature (F): 98.0 (Ester Bazzi RN) Temperature (C): 36.7 (QS system process) Monitor Mode: External (Ester Bazzi RN) Frequency (min): 3-6 (Etser Bazzi RN) Quality: Moderate (Ester Bazzi RN) Duration (sec): 70-110 (Ester Bazzi RN) Pattern: Normal: <= 5 Contractions in 10 Minutes (Ester Bazzi RN) Resting Tone (Palpate): Relaxed (Ester Bazzi RN) Monitor Mode: External US (Ester Bazzi RN) Monitor Interventions for FHR: Ultrasound Adjusted (Ester Bazzi RN) FHR Baseline Rate : 140 (Ester Bazzi RN) Variability: Moderate 6-25 bpm (Ester Bazzi RN) Accelerations: 15X15 (Ester Bazzi RN) Pain Scale: 1 (Ester Bazzi RN) Pain Presence: Intermittent (Ester Bazzi RN) Pain Type: Contraction (Ester Bazzi RN) Pain Location: Abdomen (Ester Bazzi RN) Pain Relief Measures: Comfort Measures (Ester Bazzi RN) Pain Coping: Talking Through Contractions (Ester Bazzi RN) Level of Consciousness: Fully Conscious (Ester Bazzi RN) DTR's/Clonus: DTRs 2+; No Clonus (Ester Bazzi RN) Headache: Denies (Ester Bazzi RN) Breath Sounds, Left: Clear and Equal (Ester Bazzi RN) Breath Sounds, Right: Clear and Equal (Ester Bazzi RN) Nausea/Vomiting: Denies (Ester Bazzi RN) RUQ Epigastric Pain: Denies (Ester Bazzi RN) Pitocin (milliunit): Pitocin Remains (milliunits) @ 6 (Ester Bazzi RN) Patient Position/Activity: Right Tilt; Semi-Fowlers (Ester Bazzi RN) Comfort Measures: Breathing/Relaxation; Family Support (Ester Bazzi RN) Communication: RN at Bedside; RN Reviewed Strip (Ester Bazzi RN) LaborFlag: Labor (QS system process) Datetime: 02/12/2017 20:14 NBP Sys/Brandi/Mean (mmHg): 113 (QS system process) : 55 (QS system process) : 78 (QS system process) Pulse: 83 (QS system process) LaborFlag: Labor (QS system process) Datetime: 02/12/2017 20:13 NBP Sys/Brandi/Mean (mmHg): 101 (QS system process) : 56 (QS system process) : 77 (QS system process) Pulse: 80 (QS system process) LaborFlag: Labor (QS system process) Datetime: 02/12/2017 20:12 NBP Sys/Brandi/Mean (mmHg): 112 (QS system process) : 53 (QS system process) : 77 (QS system process) Pulse: 83 (QS system process) LaborFlag: Labor (QS system process) Datetime: 02/12/2017 20:11 NBP Sys/Brandi/Mean (mmHg): 132 (QS system process) : 58 (QS system process) : 83 (QS system process) Pulse: 80 (QS system process) LaborFlag: Labor (QS system process) Datetime: 02/12/2017 20:09 NBP Sys/Brandi/Mean (mmHg): 109 (QS system process) : 61 (QS system process) : 76 (QS system process) Pulse: 72 (QS system process) LaborFlag: Labor (QS system process) Datetime: 02/12/2017 20:08 NBP Sys/Brandi/Mean (mmHg): 110 (QS system process) : 55 (QS system process) : 77 (QS system process) Pulse: 76 (QS system process) LaborFlag: Labor (QS system process) Datetime: 02/12/2017 20:07 NBP Sys/Brandi/Mean (mmHg): 105 (QS system process) : 56 (QS system process) : 77 (QS system process) Pulse: 76 (QS system process) LaborFlag: Labor (QS system process) Datetime: 02/12/2017 20:04 NBP Sys/Brandi/Mean (mmHg): 117 (QS system process) : 59 (QS system process) : 82 (QS system process) Pulse: 82 (QS system process) LaborFlag: Labor (QS system process) Datetime: 02/12/2017 20:03 NBP Sys/Brandi/Mean (mmHg): 119 (QS system process) : 61 (QS system process) : 84 (QS system process) Pulse: 82 (QS system process) LaborFlag: Labor (QS system process) Datetime: 02/12/2017 20:02 NBP Sys/Brandi/Mean (mmHg): 119 (QS system process) : 58 (QS system process) : 81 (QS system process) Pulse: 86 (QS system process) Pulse: 84 (QS system process) SpO2 (%): 99 (QS system process) LaborFlag: Labor (QS system process) Datetime: 02/12/2017 20:01 NBP Sys/Brandi/Mean (mmHg): 117 (QS system process) : 71 (QS system process) : 86 (QS system process) Pulse: 82 (QS system process) LaborFlag: Labor (QS system process) Datetime: 02/12/2017 20:00 Stage of : Labor (Ester Bazzi RN) NBP Sys/Brandi/Mean (mmHg): 120 (QS system process) : 74 (QS system process) : 93 (QS system process) Pulse: 87 (QS system process) Monitor Mode: External (Ester Bazzi RN) Frequency (min): 3-4 (Ester Bazzi RN) Quality: Moderate (Ester Bazzi RN) Duration (sec): 80-110 (Ester Bazzi RN) Pattern: Normal: <= 5 Contractions in 10 Minutes (Ester Bazzi RN) Resting Tone (Palpate): Relaxed (Ester Bazzi RN) Comments: UTD due to patient position (Ester Bazzi RN) Pitocin (milliunit): Pitocin Remains (milliunits) @ 6 (Ester Bazzi RN) Communication: RN at Bedside; RN Reviewed Strip (Ester Bazzi RN) LaborFlag: Labor (QS system process) Datetime: 02/12/2017 19:59 NBP Sys/Brandi/Mean (mmHg): 118 (QS system process) : 66 (QS system process) : 86 (QS system process) Pulse: 79 (QS system process) LaborFlag: Labor (QS system process) Datetime: 02/12/2017 19:58 NBP Sys/Brandi/Mean (mmHg): 134 (QS system process) : 67 (QS system process) : 94 (QS system process) Pulse: 84 (QS system process) Epidural Procedure: Test Dose (Ester Bazzi, RN) LaborFlag: Labor (QS system process) Datetime: 02/12/2017 19:57 NBP Sys/Brandi/Mean (mmHg): 137 (QS system process) : 77 (QS system process) : 102 (QS system process) Pulse: 85 (QS system process) Pulse: 99 (QS system process) SpO2 (%): 98 (QS system process) Epidural Procedure: Cath Placed (Ester Bazzi RN) LaborFlag: Labor (QS system process) Datetime: 02/12/2017 19:56 NBP Sys/Brandi/Mean (mmHg): 135 (QS system process) : 76 (QS system process) : 99 (QS system process) Pulse: 81 (QS system process) LaborFlag: Labor (QS system process) Datetime: 02/12/2017 19:55 NBP Sys/Brandi/Mean (mmHg): 124 (QS system process) : 73 (QS system process) : 91 (QS system process) Pulse: 79 (QS system process) LaborFlag: Labor (QS system process) Datetime: 02/12/2017 19:54 NBP Sys/Brandi/Mean (mmHg): 127 (QS system process) : 77 (QS system process) : 96 (QS system process) Pulse: 92 (QS system process) LaborFlag: Labor (QS system process) Datetime: 02/12/2017 19:53 NBP Sys/Brandi/Mean (mmHg): 116 (QS system process) : 71 (QS system process) : 89 (QS system process) Pulse: 83 (QS system process) LaborFlag: Labor (QS system process) Datetime: 02/12/2017 19:52 NBP Sys/Brandi/Mean (mmHg): 122 (QS system process) : 74 (QS system process) : 92 (QS system process) Pulse: 82 (QS system process) Pulse: 81 (QS system process) SpO2 (%): 99 (QS system process) LaborFlag: Labor (QS system process) Datetime: 02/12/2017 19:51 NBP Sys/Brandi/Mean (mmHg): 117 (QS system process) : 77 (QS system process) : 91 (QS system process) Pulse: 82 (QS system process) LaborFlag: Labor (QS system process) Datetime: 02/12/2017 19:50 NBP Sys/Brandi/Mean (mmHg): 118 (QS system process) : 78 (QS system process) : 92 (QS system process) Pulse: 88 (QS system process) LaborFlag: Labor (QS system process) Datetime: 02/12/2017 19:48 NBP Sys/Brandi/Mean (mmHg): 114 (QS system process) NBP Sys/Brandi/Mean (mmHg): 113 (QS system process) : 75 (QS system process) : 72 (QS system process) : 88 (QS system process) : 87 (QS system process) Pulse: 81 (QS system process) Pulse: 79 (QS system process) LaborFlag: Labor (QS system process) Datetime: 02/12/2017 19:47 Pulse: 79 (QS system process) SpO2 (%): 99 (QS system process) LaborFlag: Labor (QS system process) Datetime: 02/12/2017 19:45 Stage of : Labor (Ester Bazzi, RN) Monitor Mode: External; Palpation (Ester Bazzi, RN) Frequency (min): 2-3 (Ester Bazzi RN) Quality: Moderate (Ester Bazzi RN) Duration (sec): 80-120 (Ester Bazzi RN) Pattern: Normal: <= 5 Contractions in 10 Minutes (Ester Bazzi RN) Resting Tone (Palpate): Relaxed (Ester Bazzi RN) Monitor Mode: External US (Ester Bazzi RN) FHR Baseline Rate : 150 (Ester Bazzi RN) Variability: Moderate 6-25 bpm (Ester Bazzi RN) Accelerations: 15X15 (Ester Bazzi RN) Pitocin (milliunit): Pitocin Remains (milliunits) @ 6 (Ester Bazzi RN) Procedure Verify: Correct Patient Identity; Correct Side and Site are Marked; Accurate Procedure Consent Form; Agreement on Procedure to be Done; Correct Patient Position; Relevant Images and Results are Properly Labeled and Displayed; Addressed Need to Administer Antibiotics or Fluids for Irrigation; Safety Precautions Based on Patient History or Medication Use (Ester Bazzi RN) Epidural Positioning: Sitting (Ester Bazzi RN) Anesthesia Comments: EPIDURAL (Ester Bazzi RN) Communication: RN at Bedside; RN Reviewed Strip (Ester Bazzi RN) Communication: Provider at Bedside (Ester Bazzi RN) Datetime: 02/12/2017 19:42 Procedure Type: EPIDURAL (Ester Bazzi RN) Procedure Verify: Correct Patient Identity; Correct Side and Site are Marked; Accurate Procedure Consent Form; Agreement on Procedure to be Done; Correct Patient Position; Relevant Images and Results are Properly Labeled and Displayed; Addressed Need to Administer Antibiotics or Fluids for Irrigation; Safety Precautions Based on Patient History or Medication Use (Ester Bazzi RN) Epidural Positioning: Sitting (Ester Bazzi RN) Datetime: 02/12/2017 19:34 IV/Blood Work: New IV Bag Hung (Ester Bazzi RN) Procedure Verify: Correct Patient Identity; Correct Side and Site are Marked; Accurate Procedure Consent Form; Agreement on Procedure to be Done; Relevant Images and Results are Properly Labeled and Displayed; Addressed Need to Administer Antibiotics or Fluids for Irrigation; Safety Precautions Based on Patient History or Medication Use (Ester Bazzi RN) Anesthesia Comments: EPIDURAL (Ester Bazzi RN) Datetime: 02/12/2017 19:30 Monitor Mode: External; Palpation (Ana Maria Barney RN) Frequency (min): 9-10 (Ana Maria Barney RN) Quality: Mild (Ana Maria Barney RN) Duration (sec): 90-100 (Ana Maria Barney RN) Resting Tone (Palpate): Relaxed (Ana Maria Barney RN) Monitor Mode: External US (Ana Maria Barney, RN) FHR Baseline Rate : 150 (Ana Maria Barney, RN) Variability: Moderate 6-25 bpm (Ana Maria Barney, RN) Accelerations: 15X15 (Ana Maria Barney, RN) Decelerations: None (Ana Maria Barney, RN) Pitocin (milliunit): Pitocin Remains (milliunits) @ (Annotations: 6) (Ana Maria Barney, RN) Datetime: 02/12/2017 19:24 Pitocin (milliunit): Pitocin Increased to (milliunits) @ 6 (Ana Maria Barney, RN) Datetime: 02/12/2017 19:21 Communication: RN at Bedside; Report Given to @ Nesha Bazzi RN (Ana Maria Barney, RN) Datetime: 02/12/2017 19:15 Monitor Mode: External; Palpation (Ana Maria Barney, RN) Frequency (min): x1 (Ana Maria Barney, RN) Quality: Mild (Ana Maria Barney, RN) Duration (sec): 110 (Ana Maria Barney, RN) Resting Tone (Palpate): Relaxed (Ana Maria Barney, RN) Monitor Mode: External US (An Amaria Barney, RN) FHR Baseline Rate : 145 (Ana Maria Barney, RN) Variability: Moderate 6-25 bpm (Ana Maria Barney, RN) Accelerations: 15X15 (Ana Maria Barney, RN) Decelerations: None (Ana Maria Barney, RN) Pitocin (milliunit): Pitocin Remains (milliunits) @ (Annotations: 4) (Ana Maria Barney, RN) Datetime: 02/12/2017 19:00 Monitor Mode: External; Palpation (Ana Maria Barney, RN) Frequency (min): Occasional (Ana Maria Barney, RN) Quality: Mild (Ana Maria Barney, RN) Duration (sec): 70-120 (Ana Maria Barney, RN) Resting Tone (Palpate): Relaxed (Ana Maria Barney, RN) Monitor Mode: External US (Ana Maria Barney, RN) FHR Baseline Rate : 145 (Ana Maria Barney, RN) Variability: Moderate 6-25 bpm (Ana Maria Barney, RN) Accelerations: 15X15 (Ana Maria Barney, RN) Decelerations: None (Ana Maria Barney RN) Pitocin (milliunit): Pitocin Remains (milliunits) @ (Annotations: 4) (Ana Maria Barney RN)
[2017-02-13] MEDS: FERROUS SULFATE 325 MG TABLET PO SCH ×2 (10:09→17:52)
[2017-02-13] MEDS: SENNOSIDES/DOCUSATE 8.6-50 MG 1 EACH TABLET PO SCH (10:10)
[2017-02-13] MEDS: FAMOTIDINE 20 MG TABLET PO SCH ×2 (10:10→21:59)
[2017-02-13] MEDS: DOCUSATE SODIUM 100 MG CAPSULE PO SCH ×2 (10:10→17:52)
[2017-02-13] MEDS: PRENATAL VITAMIN W-O CA NO5/FE FUMARATE/FA CAPSULE PO SCH (10:10)
[2017-02-13 11:35] LABS: HEMATOCRIT 31.1 % (36.0-47.0); HEMOGLOBIN 10.6 g/dL (12.0-15.5); HGB HCT DIFFERENCE 0.7; MEAN CORPUSCULAR HEMOGLOBIN 28.5 pg (27.0-33.4); MEAN CORPUSCULAR HGB CONC 33.9 g/dL (32.0-36.0); MEAN CORPUSCULAR VOLUME 84 fl (80-97); RED BLOOD COUNT 3.71 10^6/uL (3.72-5.28); WHITE BLOOD COUNT 12.8 10^3/uL (4.0-10.5)
--- NOTE | 2017-02-13 14:10 | PDOC PROGRESS REPORT ---
Subjective-OB Subjective: Post Delivery Day: 1 31 year old G6 now P5 s/p day 1. and ambulating without difficulty. Denies any needs at this time Physical Exam (OB) Vital Signs: Temp Pulse Resp BP Pulse Ox 97.9 F 81 16 95/45 L 100 02/13/17 07:27 02/13/17 07:27 02/13/17 07:27 02/13/17 07:27 02/13/17 07:27 Intake & Output 02/12/17 02/13/17 02/14/17 06:59 06:59 06:59 Intake Total 200 Balance 200 Weight 80.45 kg - General General Appearance: Appears well In distress: None - Episiotomy/Laceration Site Condition: N/A - Lochia Lochia Amount: Scant < 10 ml Lochia Color: Rubra/Red - Abdomen Description: Soft Hernia Present: No Fundal Description: Firm, Midline Fundal Height: u/u - u/2 - Respiratory Respiratory Status: No respiratory distress - Extremities Upper extremity: Normal inspection - Psychological Associated symptoms: Normal affect, Normal mood - bonding well with baby Objective-Diagnostic Laboratory: 02/13/17 11:22 02/12/17 02/12/17 02/12/17 16:11 17:57 17:57 WBC 12.0 H RBC 4.25 Hgb 11.7 L Hct 35.6 L MCV 84 MCH 27.6 MCHC 32.9 RDW 14.8 H Plt Count 225 Seg Neutrophils % 77.9 Lymphocytes % 14.4 Monocytes % 7.0 Eosinophils % 0.4 Basophils % 0.3 Absolute Neutrophils 9.4 H Absolute Lymphocytes 1.7 Absolute Monocytes 0.8 Absolute Eosinophils 0.0 Absolute Basophils 0.0 Urine Color YELLOW Urine Appearance SLIGHTLY-CLOUDY Urine pH 6.0 Ur Specific [place] 1.006 Urine Protein NEGATIVE Urine Glucose (UA) NEGATIVE Urine Ketones NEGATIVE Urine Blood NEGATIVE Urine Nitrite NEGATIVE Ur Leukocyte Esterase SMALL H Blood Type A POSITIVE Antibody Screen NEGATIVE 02/13/17 11:22 WBC 12.8 H RBC 3.71 L Hgb 10.6 L Hct 31.1 L MCV 84 MCH 28.5 MCHC 33.9 RDW 15.0 H Plt Count 196 Seg Neutrophils % Lymphocytes % Monocytes % Eosinophils % Basophils % Absolute Neutrophils Absolute Lymphocytes Absolute Monocytes Absolute Eosinophils Absolute Basophils Urine Color Urine Appearance Urine pH Ur Specific [place] Urine Protein Urine Glucose (UA) Urine Ketones Urine Blood Urine Nitrite Ur Leukocyte Esterase Blood Type Antibody Screen Assessment and Plan(PN) - Assessment and Plan (1) Delivery normal Is this a current diagnosis for this admission?: YesPlan: continue stay (2) Anemia Qualifiers: Anemia type: unspecified type Qualified Code(s): D64.9 - Anemia, unspecified Is this a current diagnosis for this admission?: YesPlan: iron supplementation - Time Spent with Patient Time with patient: Less than 15 minutes Medications reviewed and adjusted accordingly: Yes - Disposition Anticipated Discharge: Home Within: within 24 hours
--- NOTE | 2017-02-13 18:01 | L&D General Admission ---
General Admit Datetime Report Generated by CPN: 02/13/2017 18:00 INFORMATION Patient Age: 31 (02/12/2017 16:02:QS system process) EDC: 03/03/2017 00:00 (02/12/2017 16:07:Ana Maria Barney RN) : 6 (02/12/2017 16:07:Ana Maria Barney RN) Para: 4 (02/12/2017 16:07:Ana Maria Barney RN) Term: 3 (02/12/2017 16:07:Ana Maria Barney RN) : 1 (02/12/2017 16:07:Ana Maria Barney RN) Spontaneous Abortions: 1 (02/12/2017 16:07:Ana Maria Barney RN) Induced Abortions: 0 (02/12/2017 16:07:Ana Maria Barney RN) Livin (02/12/2017 16:07:Ana Maria Barney RN) Cesareans: 0 (02/12/2017 16:07:Ana Maria Barney RN) VBACs: 0 (02/12/2017 16:07:Ana Maira Barney RN) Ectopic: 0 (02/12/2017 16:07:Ana Maria Barney RN) Multiple Births: 0 (02/12/2017 16:07:Ana Maria Barney RN) Baby, Number in Womb: 1 (02/12/2017 16:07:Ana Maria Barney RN) CARE [facility] Raw [facility] (02/12/2017 16:07:Ana Maria Barney RN) Month of 1st Visit: June (02/12/2017 16:07:THEE Bro) Adequate Care: Yes (02/12/2017 16:07:Ana Maria Barney RN) Prepregnancy Weight (lb): 150 (02/12/2017 16:07:Berenice Ellsworth RN) Prepregnancy Weight (kg): 68.2 (02/12/2017 16:07:QS system process) Height (in): 65 (02/12/2017 16:20:QS system process) ALLERGIES Medication Allergy: No (02/12/2017 16:07:Ana Maria Barney RN) Medication Allergies: No Known Allergies (01/22/2014) (02/12/2017 16:02:QS system process) Latex Allergy: No Latex Allergies (02/12/2017 16:07:Ana Maria Barney RN) Food Allergies: none (02/12/2017 16:07:Ester Bazzi RN) Environmental Allergies: none (02/12/2017 16:07:Ester Bazzi RN) COMMUNICATION Primary Language: Liberian (02/12/2017 16:07:Ana Maria Barney RN) Medical Tx Preferred Language: Liberian (02/12/2017 16:07:Ana Maria Barney RN) Communication Barrier(s): None (02/12/2017 16:07:Berenice Ellsworth RN) DEMOGRAPHICS Address: [address] [place] [id number] (02/12/2017 16:02:QS system process) Zipcode: [address] (02/12/2017 16:02:QS system process) County: [place] (02/12/2017 16:07:Berenice Ellsworth RN) Home (02/12/2017 16:02:QS system process) N: [phone] (02/12/2017 16:02:QS system process) Next of Kin Name: FRANKLYN CALHOUN (02/12/2017 16:02:QS system process) Next of Kin (02/12/2017 16:02:QS system process) Next of Kin Relationship: FA (02/12/2017 16:02:QS system process) Date of : 1985 (02/12/2017 16:02:QS system process) Marital Status: Single (02/12/2017 16:02:QS system process) Sex: Female (02/12/2017 16:02:QS system process) Race: Other (02/12/2017 16:02:QS system process) Ethnicity: Non- or (02/12/2017 16:02:QS system process) Jew: None (02/12/2017 16:02:QS system process) FOB Involved: Yes (02/12/2017 16:07:Berenice Ellsworth RN) Father of Baby Name: Franklyn (02/12/2017 16:07:Berenice Ellsworth RN) DRUG AND ALCOHOL USE Alcohol: No (02/12/2017 16:07:Ana Maria Barney RN) Cigarettes: Never Smoker. [phone] (02/12/2017 16:07:Ana Maria Barney RN) Marijuana: No (02/12/2017 16:07:Ana Maria Barney RN) Cocaine: No (02/12/2017 16:07:Ester Bazzi RN) Other Illicit Drugs: No (02/12/2017 16:07:Ana Maria Barney RN) VACCINE HISTORY Influenza Vaccine: No (02/12/2017 16:07:Ana Maria Barney RN) Pneumococcal Vaccine: No (02/12/2017 16:07:Ana Maria Barney RN) Tetanus Vaccine: Uncertain (02/12/2017 16:07:Ana Maria Barney RN) Tdap Vaccine: Uncertain (02/12/2017 16:07:Ana Maria Barney RN) Hepatitis B Vaccine: Uncertain (02/12/2017 16:07:Ana Maria Barney RN) Lens Cutter: [facility] (02/12/2017 16:07:Ana Maria Barney RN) Feeding Preference: Breast (02/12/2017 16:07:Ana Maria Barney RN) Benefit of Breast Feed Discussed: Yes (02/12/2017 16:07:Ana Maria Barney RN) Circumcision: N/A (02/12/2017 16:07:Ana Maria Barney RN) Classes Attended: No (02/12/2017 16:07:Ana Maria Barney RN) Tubal Ligation: Yes (02/12/2017 16:07:Ana Maria Barney RN) Tubal Authorization Signed: Yes (02/12/2017 16:07:Ana Maria Barney RN) Consent: N/A (02/12/2017 16:07:Ana Maria Barney RN) Consent Signed: N/A (02/12/2017 16:07:Ana Maria Barney RN) Pain Management Plans: Epidural (02/12/2017 16:07:Ana Maria Barney RN) Plans for Labor and Delivery: None (02/12/2017 16:07:Ana Maria Barney RN) Support Person: Juan Manuel Solorio (02/12/2017 16:07:Ana Maria Barney RN) Support Person Relationship: Significant Other (02/12/2017 16:07:Ana Maria Barney RN) Cultural/Spritual Practice: No (02/12/2017 16:07:Ana Maria Barney RN) Spir/Cult Dietary Needs: No (02/12/2017 16:07:Ana Maria Barney RN) LIVING SITUATION/DISCHARGE PLAN Living Arrangements: House (02/12/2017 16:07:Ana Maria Barney RN) Adequate Access to:: Electric; Heat; Refrigeration; Plumbing/Running water; Phone; Transportation (02/12/2017 16:07:Ana Maria Barney RN) WIC Program: Yes (02/12/2017 16:07:Ana Maria Barney RN) Discharge Workers Compensation Analyst Person: Juan Manuel Solorio (02/12/2017 16:07:Ana Maria Barney RN) Person to Help after Discharge: Juan Manuel Solorio (02/12/2017 16:07:Ana Maria Barney RN) Currently Using Commun Resources: Yes (02/12/2017 16:07:Ana Maria Barney RN) Specify Current Resource Used: Medicaid (02/12/2017 16:07:Ana Maria Barney RN) Car Seat for Discharge: Yes (02/12/2017 16:07:Ana Maria Barney RN) Adoption Requested: No (02/12/2017 16:07:Ana Maria Barney RN) LABS Blood Type: A Positive (02/12/2017 16:07:Ana Maria Barney RN) Hemoglobin: 10.6 L (02/13/2017 11:22:QS system process) Hematocrit: 31.1 L (02/13/2017 11:22:QS system process) MCV: 84 (02/13/2017 11:22:QS system process) Group Beta Strep: Negative (02/12/2017 16:07:Ana Maria Barney RN) Gonorrhea: Negative (02/12/2017 16:07:Ana Maria Barney RN) Chlamydia: Negative (02/12/2017 16:07:Ana Maria Barney RN) RPR/VDRL: Nonreactive (02/12/2017 16:07:Ana Maria Barney RN) HIV Exposure Test: Negative (02/12/2017 16:07:Ana Maria Barney RN) Hepatitis B: Negative (02/12/2017 16:07:Ana Maria Barney RN) Rubella: Immune (02/12/2017 16:07:Ana Maria Barney RN) OB/PREVIOUS HISTORY Previous Procedures: Ultrasound; NST (02/12/2017 16:07:Ester Bazzi RN) Current Procedures: Ultrasound (02/12/2017 16:07:Berenice Ellsworth RN) History of Previous : No (02/12/2017 16:07:Ana Maria Barney RN) History of Gestational Diabetes: No (02/12/2017 16:07:Ana Maria Barney RN) History of PIH: No (02/12/2017 16:07:Ana Maria Barney RN) History of Incompetent Cervix: No (02/12/2017 16:07:Ana Maria Barney RN) History of Placenta Previa/Abrup: No (02/12/2017 16:07:Ana Maria Barney RN) History of Macrosomia: No (02/12/2017 16:07:Ana Maria Barney RN) History of IUGR: No (02/12/2017 16:07:Ana Maria Barney RN) History of Hemorrhage: No (02/12/2017 16:07:Ana Maria Barney RN) History of Loss/Stillborn: No (02/12/2017 16:07:Ana Maria Barney RN) History of : No (02/12/2017 16:07:Ana Maria Barney RN) History of D (Rh) Sensitization: No (02/12/2017 16:07:Ana Maria Barney RN) History Recurrent Loss/Stillborn: No (02/12/2017 16:07:Ana Maria Barney RN) History Depression/PP Depression: No (02/12/2017 16:07:Ana Maria Barney RN) History of Uterine Anomaly/AMI: No (02/12/2017 16:07:Ana Maria Barney RN) History of Infertility: No (02/12/2017 16:07:Ana Maria Barney RN) History of ART Treatment: No (02/12/2017 16:07:Ana Maria Barney RN) History of AMI: No (02/12/2017 16:07:Ana Maria Barney RN) Comments Obstetrical History: G1- male at 36 weeks (2005) G2- Progesterone shots. female born at 40 weeks (2009). G3- SAB at 6 wks (2010) G4 -Progesterone shots. female born at 40 weeks (2011). G5- female born at 37.6 weeks (2013). G6- Current (02/12/2017 16:07:Ana Maria Barney RN) MEDICAL HISTORY Med Hx Diabetes: No (02/12/2017 16:07:Ana Maria Barney RN) Med Hx Hypertension: No (02/12/2017 16:07:Ana Maria Barney RN) Med Hx Heart Disease: No (02/12/2017 16:07:Ana Maria Barney RN) Med Hx Autoimmune Disorder: No (02/12/2017 16:07:Ana Maria Barney RN) Med Hx Kidney Disease/UTI: No (02/12/2017 16:07:Ana Maria Barney RN) Med Hx Neurologic/Epilepsy: No (02/12/2017 16:07:Ana Maria Barney RN) Med Hx Psychiatric Disorders: Yes (02/12/2017 16:07:Ana Maria Barney RN) Med Hx Hepatitis/Liver Disease: No (02/12/2017 16:07:Ana Maria Barney RN) Med Hx Varicosities/Phlebitis: No (02/12/2017 16:07:Ana Maria Barney RN) Med Hx Thyroid Dysfunction: No (02/12/2017 16:07:Ana Maria Barney, RN) Med Hx Trauma/Violence: No (02/12/2017 16:07:Ana Maria Barney RN) Med Hx Blood Transfusion: No (02/12/2017 16:07:Ana Maria Barney RN) Med Hx Pulmonary (Asthma,TB): No (02/12/2017 16:07:Ana Maria Barney RN) Med Hx Breast: No (02/12/2017 16:07:Ana Maria Barney RN) Med Hx CUT ORDER HAND Surgery: No (02/12/2017 16:07:Ana Maria Barney RN) Med Hx Hospitalization/Surgery: Yes (02/12/2017 16:07:Ana Maria Barney RN) Med Hx Anesthetic Complications: No (02/12/2017 16:07:Ana Maria Barney RN) Med Hx Abnormal Pap Smear: No (02/12/2017 16:07:Ana Maria Barney RN) Other Medical Diseases: No (02/12/2017 16:07:Ana Maria Barney RN) Med Hx Significant Family Hx: No (02/12/2017 16:07:Aan Maria Barney RN) Details of Med/Surg Hx: x 4, Hx of anxiety and panic attacks (02/12/2017 16:07:Ester Bazzi RN) INFECTIOUS HISTORY Inf Hx Gonorrhea: No (02/12/2017 16:07:Ana Maria Barney RN) Inf Hx Chlamydia: Yes (02/12/2017 16:07:Ana Maria Barney RN) Inf Hx Syphilis: No (02/12/2017 16:07:Ana Maria Barney RN) Inf Hx HIV/AIDS: No (02/12/2017 16:07:Ana Maria Barney RN) Inf Hx Human Papilloma Virus: No (02/12/2017 16:07:Ana Maria Barney RN) Inf Hx Pt/Partner Genital Herpes: No (02/12/2017 16:07:Ana Maria Barney RN) Inf Hx Tuberculosis/Exposure: No (02/12/2017 16:07:Ana Maria Barney RN) Inf Hx Hepatitis B,C: No (02/12/2017 16:07:Ana Maria Barney RN) Inf Hx Rash or Viral Illness: No (02/12/2017 16:07:Ana Maria Barney RN) Details of Infectious Hx: Hx of chlamydia in 2013 (02/12/2017 16:07:Ana Maria Barney RN) GENETIC HISTORY Gen Hx Age >=35 at DELIA: No (02/12/2017 16:07:Ana Maria Barney RN) Gen Hx Thalassemia: No (02/12/2017 16:07:Ana Maria Barney RN) Gen Hx Congenital Heart Defect: No (02/12/2017 16:07:Ana Maria Barney RN) Gen Hx Neural Tube Defect: No (02/12/2017 16:07:Ana Maria Barney RN) Gen Hx Down's Syndrome: No (02/12/2017 16:07:Ana Maria Barney RN) Gen Hx Pablo-Sachs: No (02/12/2017 16:07:Ana Maria Barney RN) Gen Hx Toña: No (02/12/2017 16:07:Ana Maria Barney RN) Gen Hx Familial Dysautonomia: No (02/12/2017 16:07:Ana Maria Barney RN) Gen Hx Sickle Cell Disease/Trait: No (02/12/2017 16:07:Ana Maria Barney RN) Gen Hx Hemophilia/Blood Disorder: No (02/12/2017 16:07:Ana Maria Barney RN) Gen Hx Muscular Dystrophy: No (02/12/2017 16:07:Ana Maria Barney RN) Gen Hx Cystic Fibrosis: No (02/12/2017 16:07:Ana Maria Barney RN) Gen Hx Huntingtons Chorea: No (02/12/2017 16:07:Ana Maria Barney RN) Gen Hx Mental Retardation/Autism: No (02/12/2017 16:07:Ana Maria Barney RN) Gen Hx Tested for Fragile X: No (02/12/2017 16:07:Ana Maria Barney RN) Gen Hx Other Inher/Chromosomal: No (02/12/2017 16:07:Ana Maria Barney RN) Gen Hx Maternal Metabolic DO: No (02/12/2017 16:07:Ana Maria Barney RN) Gen Hx Pt Father or FOB Defect: No (02/12/2017 16:07:Ana Maria Barney RN) Gen Hx Other Genetic History: No (02/12/2017 16:07:Ana Maria Barney RN) Gen Hx Drugs/Meds since LMP: No (02/12/2017 16:07:Ana Maria Barney RN)
--- NOTE | 2017-02-13 18:01 | L&D Current Admission ---
Current Admit Datetime Report Generated by CPN: 02/13/2017 18:00 ADMISSION INFORMATION Current Admit Date/Time: 02/12/2017 17:13 (02/12/2017 16:44:Ana Maria Barney RN) Reason for Admission: Rupture of Membranes (02/12/2017 16:30:Ana Maria Barney RN) Chief Complaint: Suspected Rupture of Membranes (02/12/2017 16:44:Ana Maria Barney RN) Medications During : Vitamin (02/12/2017 16:30:Ana Maria Barney RN) EGA per Dates: 37.2 (02/12/2017 16:44:QS system process) Method of Arrival: Wheelchair (02/12/2017 16:30:Ana Maria Barney RN) Admitted From: Home (02/12/2017 16:30:Ana Maria Barney RN) Reason for Induction: Not Applicable (02/12/2017 16:30:Ana Maria Barney RN) Records Available: Yes (02/12/2017 16:30:Ana Maria Barney RN) General Admission Information: Reviewed; Updated (02/12/2017 16:30:Ana Maria Barney RN) General Admission Reviewed By: Veronique Barney RN (02/12/2017 16:30:Ana Maria Barney RN) BELONGINGS/ADVANCED DIRECTIVES Valuables/Personal Effects: Purse/Wallet; Cell Phone (02/12/2017 16:30:Ana Maria Barney RN) Other Belongings: clothing (02/12/2017 16:30:Ana Maria Barney RN) Disposition of Belongings: Kept with Patient (02/12/2017 16:30:Ana Maria Barney RN) Advance Direct for Healthcare: No, and Wants No Information (02/12/2017 16:30:Ana Maria Barney RN) Durable Power of Tugger Operator: No (02/12/2017 16:30:Ana Maria Barney RN) Living Will: No (02/12/2017 16:30:Ana Maria Barney RN) Organ Donor: No (02/12/2017 16:30:Ana Maria Barney RN) Pt Rights Information Given: Yes (02/12/2017 16:30:Ana Maria Barney RN) Pt Understands Pt Rights: Yes (02/12/2017 16:30:Ana Maria Barney RN) LEARNING ASSESSMENT Knowledge Level: Understands L_D Process; Understands Care Activities; Had Pre-Hospital Education; Understands Diagnosis (02/12/2017 16:30:Ana Maria Barney RN) Barriers to Learning: None (02/12/2017 16:30:Ana Maria Barney RN) Learning Readiness: Motivated (02/12/2017 16:30:Ana Maria Barney RN) Learns Best By: 1 to 1 Instruction; Demonstration (02/12/2017 16:30:Ana Maria Barney RN) Learning Needs: Labor and Delivery Process; Pain Management; Symptoms to Report; Treatment Plan; Medication; Diagnosis; Nutrition; Equipment; Infant Care (02/12/2017 16:30:Ana Maria Barney RN) DOMESTIC VIOLANCE SCREENING Dom Viol Threatened/Hurt: No (02/12/2017 16:30:Ana Maria Barney RN) Hx of Abuse/Neglect past 2yrs: No (02/12/2017 16:30:Ana Maria Barney RN) Feel Unsafe Going Home: No (02/12/2017 16:30:Ana Maria Barney RN) Addt'l Observ Indicating Abuse: No (02/12/2017 16:30:Ana Maria Barney RN) Reason Unable to Complete Screen: N/A, Screen Completed (02/12/2017 16:30:Ana Maria Barney RN) Considered Personal Harm/Suicide: No (02/12/2017 16:30:Ana Maria Barney RN) NUTRITIONAL/FUNCTIONAL SCREENING Problem with Appetite >5 Days: No (02/12/2017 16:30:Ana Maria Barney RN) Chew/Swallow Difficulties: No (02/12/2017 16:30:Ana Maria Barney RN) Inappropriate Wt Gain/Loss: No (02/12/2017 16:30:Ana Maria Barney RN) Presence Skin Breakdown/Ulcer: No (02/12/2017 16:30:Ana Maria Barney RN) Special Diet: No (02/12/2017 16:30:Ana Maria Barney RN) Pt Requests Clinical Nursing Director Visit: No (02/12/2017 16:30:Ana Maria Barney RN) Hx of Any of the Following?: N/A (02/12/2017 16:30:Ana Maria Barney RN) New Diagnosis of: N/A (02/12/2017 16:30:Ana Maria Barney RN) Requires Assist w/Ambulation: No (02/12/2017 16:30:Ana Maria Barney RN) Uses Assist Device to Ambulate: No (02/12/2017 16:30:Ana Maria Barney RN) Pt Requires Help w/ADL's: No (02/12/2017 16:30:Ana Maria Barney RN)
--- NOTE | 2017-02-14 06:01 | L&D General Admission ---
General Admit Datetime Report Generated by CPN: 02/14/2017 06:00 INFORMATION Patient Age: 31 (02/12/2017 16:02:QS system process) EDC: 03/03/2017 00:00 (02/12/2017 16:07:Ana Maria Barney RN) : 6 (02/12/2017 16:07:Ana Maria Barney RN) Para: 4 (02/12/2017 16:07:Ana Maria Barney RN) Term: 3 (02/12/2017 16:07:Ana Maria Barney RN) : 1 (02/12/2017 16:07:Ana Maria Barney RN) Spontaneous Abortions: 1 (02/12/2017 16:07:Ana Maria Barney RN) Induced Abortions: 0 (02/12/2017 16:07:Ana Maria Barney RN) Livin (02/12/2017 16:07:Ana Maria Barney RN) Cesareans: 0 (02/12/2017 16:07:Ana Maria Barney RN) VBACs: 0 (02/12/2017 16:07:Ana Maria Barney RN) Ectopic: 0 (02/12/2017 16:07:Ana Maria Barney RN) Multiple Births: 0 (02/12/2017 16:07:Ana Maria Barney RN) Baby, Number in Womb: 1 (02/12/2017 16:07:Ana Maria Barney RN) CARE Primary Ice Seller: [facility] (02/12/2017 16:07:Ana Maria Barney RN) Month of 1st Visit: June (02/12/2017 16:07:THEE Bro) Adequate Care: Yes (02/12/2017 16:07:Ana Maria Barney RN) Prepregnancy Weight (lb): 150 (02/12/2017 16:07:Berenice Ellsworth RN) Prepregnancy Weight (kg): 68.2 (02/12/2017 16:07:QS system process) Height (in): 65 (02/12/2017 16:20:QS system process) ALLERGIES Medication Allergy: No (02/12/2017 16:07:Ana Maria Barney RN) Medication Allergies: No Known Allergies (01/22/2014) (02/12/2017 16:02:QS system process) Latex Allergy: No Latex Allergies (02/12/2017 16:07:Ana Maria Barney RN) Food Allergies: none (02/12/2017 16:07:Ester Bazzi RN) Environmental Allergies: none (02/12/2017 16:07:Ester Bazzi RN) COMMUNICATION Primary Language: Nicaraguan (02/12/2017 16:07:Ana Maria Barney RN) Medical Tx Preferred Language: Nicaraguan (02/12/2017 16:07:Ana Maria Barney RN) Communication Barrier(s): None (02/12/2017 16:07:Berenice Ellsworth RN) DEMOGRAPHICS Address: [address] [place] [id number] (02/12/2017 16:02:QS system process) Zipcode: [address] (02/12/2017 16:02:QS system process) County: [place] (02/12/2017 16:07:Berenice Ellsworth RN) Home (02/12/2017 16:02:QS system process) N: [phone] (02/12/2017 16:02:QS system process) Next of Kin Name: FRANKLYN CALHOUN (02/12/2017 16:02:QS system process) Next of Kin (02/12/2017 16:02:QS system process) Next of Kin Relationship: FA (02/12/2017 16:02:QS system process) Date of : 1985 (02/12/2017 16:02:QS system process) Marital Status: Single (02/12/2017 16:02:QS system process) Sex: Female (02/12/2017 16:02:QS system process) Race: Other (02/12/2017 16:02:QS system process) Ethnicity: Non- or (02/12/2017 16:02:QS system process) Jewish: None (02/12/2017 16:02:QS system process) FOB Involved: Yes (02/12/2017 16:07:Berenice Ellsworth RN) Father of Baby Name: Franklyn (02/12/2017 16:07:Berenice Ellsworth RN) DRUG AND ALCOHOL USE Alcohol: No (02/12/2017 16:07:Ana Maria Barney RN) Cigarettes: Never Smoker. [id number] (02/12/2017 16:07:Ana Maria Barney RN) Marijuana: No (02/12/2017 16:07:Ana Maria Barney RN) Cocaine: No (02/12/2017 16:07:Ester Bazzi RN) Other Illicit Drugs: No (02/12/2017 16:07:Ana Maria Barney RN) VACCINE HISTORY Influenza Vaccine: No (02/12/2017 16:07:Ana Maria Barney RN) Pneumococcal Vaccine: No (02/12/2017 16:07:Ana Maria Barney RN) Tetanus Vaccine: Uncertain (02/12/2017 16:07:Ana Maria Barney RN) Tdap Vaccine: Uncertain (02/12/2017 16:07:Ana Maria Barney RN) Hepatitis B Vaccine: Uncertain (02/12/2017 16:07:Ana Maria Barney RN) Project Portfolio Analyst: [facility] (02/12/2017 16:07:Ana Maria Barney RN) Feeding Preference: Breast (02/12/2017 16:07:Ana Maria Barney RN) Benefit of Breast Feed Discussed: Yes (02/12/2017 16:07:Ana Maria Barney RN) Circumcision: N/A (02/12/2017 16:07:Ana Maria Barney RN) Classes Attended: No (02/12/2017 16:07:Ana Maria Barney RN) Tubal Ligation: Yes (02/12/2017 16:07:Ana Maria Barney RN) Tubal Authorization Signed: Yes (02/12/2017 16:07:Ana Maria Barney RN) Consent: N/A (02/12/2017 16:07:Ana Maria Barney RN) Consent Signed: N/A (02/12/2017 16:07:Ana Maria Barney RN) Pain Management Plans: Epidural (02/12/2017 16:07:Ana Maria aBrney RN) Plans for Labor and Delivery: None (02/12/2017 16:07:Ana Maria Barney RN) Support Person: Juan Manuel Solorio (02/12/2017 16:07:Ana Maria Barney RN) Support Person Relationship: Significant Other (02/12/2017 16:07:Ana Maria Barney RN) Cultural/Spritual Practice: No (02/12/2017 16:07:Ana Maria Barney RN) Spir/Cult Dietary Needs: No (02/12/2017 16:07:Ana Maria Barney RN) LIVING SITUATION/DISCHARGE PLAN Living Arrangements: House (02/12/2017 16:07:Ana Maria Barney RN) Adequate Access to:: Electric; Heat; Refrigeration; Plumbing/Running water; Phone; Transportation (02/12/2017 16:07:Ana Maria Barney RN) WIC Program: Yes (02/12/2017 16:07:Ana Maria Barney RN) Discharge Benefits Specialist Recruiter Person: Juan Manuel Solorio (02/12/2017 16:07:Ana Maria Barney RN) Person to Help after Discharge: Juan Manuel Solorio (02/12/2017 16:07:Ana Maria Barney RN) Currently Using Commun Resources: Yes (02/12/2017 16:07:Ana Maria Barney RN) Specify Current Resource Used: Medicaid (02/12/2017 16:07:Ana Maria Barney RN) Car Seat for Discharge: Yes (02/12/2017 16:07:Ana Maria Barney RN) Adoption Requested: No (02/12/2017 16:07:Ana Maria Barney RN) LABS Blood Type: A Positive (02/12/2017 16:07:Ana Maria Barney RN) Hemoglobin: 10.6 L (02/13/2017 11:22:QS system process) Hematocrit: 31.1 L (02/13/2017 11:22:QS system process) MCV: 84 (02/13/2017 11:22:QS system process) Group Beta Strep: Negative (02/12/2017 16:07:Ana Maria Barney RN) Gonorrhea: Negative (02/12/2017 16:07:Ana Maria Barney RN) Chlamydia: Negative (02/12/2017 16:07:Ana Maria Barney RN) RPR/VDRL: Nonreactive (02/12/2017 16:07:Ana Maria Barney RN) HIV Exposure Test: Negative (02/12/2017 16:07:Ana Maria Barney RN) Hepatitis B: Negative (02/12/2017 16:07:Ana Maria Barney RN) Rubella: Immune (02/12/2017 16:07:Ana Maria Barney RN) OB/PREVIOUS HISTORY Previous Procedures: Ultrasound; NST (02/12/2017 16:07:Ester Bazzi RN) Current Procedures: Ultrasound (02/12/2017 16:07:Berenice Ellsworth RN) History of Previous : No (02/12/2017 16:07:Ana Maria Barney RN) History of Gestational Diabetes: No (02/12/2017 16:07:Ana Maria Barney RN) History of PIH: No (02/12/2017 16:07:Ana Maria Barney RN) History of Incompetent Cervix: No (02/12/2017 16:07:Ana Maria Barney RN) History of Placenta Previa/Abrup: No (02/12/2017 16:07:Ana Maria Barney RN) History of Macrosomia: No (02/12/2017 16:07:Ana Maria Barney RN) History of IUGR: No (02/12/2017 16:07:Ana Maria Barney RN) History of Hemorrhage: No (02/12/2017 16:07:Ana Maria Barney RN) History of Loss/Stillborn: No (02/12/2017 16:07:Ana Maria Barney RN) History of : No (02/12/2017 16:07:Ana Maria Barney RN) History of D (Rh) Sensitization: No (02/12/2017 16:07:Ana Maria Barney RN) History Recurrent Loss/Stillborn: No (02/12/2017 16:07:Ana Maria Barney RN) History Depression/PP Depression: No (02/12/2017 16:07:Ana Maria Barney RN) History of Uterine Anomaly/AMI: No (02/12/2017 16:07:Ana Maria Barney RN) History of Infertility: No (02/12/2017 16:07:Ana Maria Barney RN) History of ART Treatment: No (02/12/2017 16:07:Ana Maria Barney RN) History of AMI: No (02/12/2017 16:07:Ana Maria Barney RN) Comments Obstetrical History: G1- male at 36 weeks (2005) G2- Progesterone shots. female born at 40 weeks (2009). G3- SAB at 6 wks (2010) G4 -Progesterone shots. female born at 40 weeks (2011). G5- female born at 37.6 weeks (2013). G6- Current (02/12/2017 16:07:Ana Maria Barney RN) MEDICAL HISTORY Med Hx Diabetes: No (02/12/2017 16:07:Ana Maria Barney RN) Med Hx Hypertension: No (02/12/2017 16:07:Ana Maria Barney RN) Med Hx Heart Disease: No (02/12/2017 16:07:Ana Maria Barney RN) Med Hx Autoimmune Disorder: No (02/12/2017 16:07:Ana Maria Barney RN) Med Hx Kidney Disease/UTI: No (02/12/2017 16:07:Ana Maria Barney RN) Med Hx Neurologic/Epilepsy: No (02/12/2017 16:07:Ana Maria Barney RN) Med Hx Psychiatric Disorders: Yes (02/12/2017 16:07:Ana Maria Barney RN) Med Hx Hepatitis/Liver Disease: No (02/12/2017 16:07:Ana Maria Barney RN) Med Hx Varicosities/Phlebitis: No (02/12/2017 16:07:Ana Maria Barney RN) Med Hx Thyroid Dysfunction: No (02/12/2017 16:07:Ana Maria Barney, RN) Med Hx Trauma/Violence: No (02/12/2017 16:07:Ana Maria Barney RN) Med Hx Blood Transfusion: No (02/12/2017 16:07:Ana Maria Barney RN) Med Hx Pulmonary (Asthma,TB): No (02/12/2017 16:07:Ana Maria Barney RN) Med Hx Breast: No (02/12/2017 16:07:Ana Maria Barney RN) Med Hx DRY FOLDER CLOTH Surgery: No (02/12/2017 16:07:Ana Maria Barney RN) Med Hx Hospitalization/Surgery: Yes (02/12/2017 16:07:Ana Maria Barney RN) Med Hx Anesthetic Complications: No (02/12/2017 16:07:Ana Maria Barney RN) Med Hx Abnormal Pap Smear: No (02/12/2017 16:07:Ana Maria Barney RN) Other Medical Diseases: No (02/12/2017 16:07:Ana Maria Barney RN) Med Hx Significant Family Hx: No (02/12/2017 16:07:Ana Maria Barney RN) Details of Med/Surg Hx: x 4, Hx of anxiety and panic attacks (02/12/2017 16:07:Ester Bazzi RN) INFECTIOUS HISTORY Inf Hx Gonorrhea: No (02/12/2017 16:07:Ana Maria Barney RN) Inf Hx Chlamydia: Yes (02/12/2017 16:07:Ana Maria Barney RN) Inf Hx Syphilis: No (02/12/2017 16:07:Ana Maria Barney RN) Inf Hx HIV/AIDS: No (02/12/2017 16:07:Ana Maria Barney RN) Inf Hx Human Papilloma Virus: No (02/12/2017 16:07:Ana Maria Barney RN) Inf Hx Pt/Partner Genital Herpes: No (02/12/2017 16:07:Ana Maria Barney RN) Inf Hx Tuberculosis/Exposure: No (02/12/2017 16:07:Ana Maria Barney RN) Inf Hx Hepatitis B,C: No (02/12/2017 16:07:Ana Maria Barney RN) Inf Hx Rash or Viral Illness: No (02/12/2017 16:07:Ana Maria Barney RN) Details of Infectious Hx: Hx of chlamydia in 2013 (02/12/2017 16:07:Ana Maria Barney RN) GENETIC HISTORY Gen Hx Age >=35 at [place]: No (02/12/2017 16:07:Ana Maria Barney RN) Gen Hx Thalassemia: No (02/12/2017 16:07:Ana Maria Barney RN) Gen Hx Congenital Heart Defect: No (02/12/2017 16:07:Ana Maria Barney RN) Gen Hx Neural Tube Defect: No (02/12/2017 16:07:Ana Maria Barney RN) Gen Hx Down's Syndrome: No (02/12/2017 16:07:Ana Maria Barney RN) Gen Hx Pablo-Sachs: No (02/12/2017 16:07:Ana Maria Barney RN) Gen Hx Toña: No (02/12/2017 16:07:Ana Maria Barney RN) Gen Hx Familial Dysautonomia: No (02/12/2017 16:07:Ana Maria Barney RN) Gen Hx Sickle Cell Disease/Trait: No (02/12/2017 16:07:Ana Maria Barney RN) Gen Hx Hemophilia/Blood Disorder: No (02/12/2017 16:07:Ana Maria Barney RN) Gen Hx Muscular Dystrophy: No (02/12/2017 16:07:Ana Maria Barney RN) Gen Hx Cystic Fibrosis: No (02/12/2017 16:07:Ana Maria Barney RN) Gen Hx Huntingtons Chorea: No (02/12/2017 16:07:Ana Maria Barney RN) Gen Hx Mental Retardation/Autism: No (02/12/2017 16:07:Ana Maria Barney RN) Gen Hx Tested for Fragile X: No (02/12/2017 16:07:Ana Maria Barney RN) Gen Hx Other Inher/Chromosomal: No (02/12/2017 16:07:Ana Maria Barney RN) Gen Hx Maternal Metabolic DO: No (02/12/2017 16:07:Ana Maria Barney RN) Gen Hx Pt Father or FOB Defect: No (02/12/2017 16:07:Ana Maria Barney RN) Gen Hx Other Genetic History: No (02/12/2017 16:07:Ana Maria Barney RN) Gen Hx Drugs/Meds since LMP: No (02/12/2017 16:07:Ana Maria Barney RN)
[2017-02-14] MEDS: IBUPROFEN 800 MG TABLET PO SCH (06:10)
--- NOTE | 2017-02-14 06:16 | L&D Care Plan ---
LD CARE PLANS Datetime Report Generated by CPN: 02/14/2017 06:15 Datetime: 02/12/2017 17:07 Pain State: Risk For (Berenice Ellsworth RN) Related To: Labor and Delivery Process; Complication(s) of ; Post (Berenice Ellsworth RN) Goal(s): Patients Pain will be Assessed and Managed; Patient will Verbalize Adequate Relief of Pain or the Ability to [place] with Current Pain (Berenice Ellsworth RN) Interventions: Assess Pain Severity on Scale of 0 (None) to 5 (Severe); Assess Type, Location and Intensity of Pain Each Time Client Reports Discomfort and Notify Provider if Unusal Pain Develops; Encourage Proper Breathing and Relaxation Techniques; Offer Alternatives Such as Repositioning, Calm Environment, Massages, Diversional Activities, Ice Pack, Splinting, and Ambulation; Administer Analgesics as Ordered; Assist with Epidural Placement as Appropriate; Evaluate Therapeutic Effectiveness of Medication and Treatments (Berenice Ellsworth RN) Outcome: Patient will Report Absence or Relief of Pain Consistent with Established Pain Goal (Berenice Ellsworth RN) Status: Ongoing (Berenice Ellsworth RN) Outcome: Patient will have a Decrease in Signs and Symptoms of Discomfort (Berenice Ellsworth RN) Status: Ongoing (Berenice Ellsworth RN) Status: Ongoing (Berenice Ellsworth RN) Anxiety State: Risk For (Berenice Ellsworth RN) Related To: Labor and Delivery Process (Berenice Ellsworth RN) Goal(s): Patient will have Decreased Anxiety and be able to Function at Acceptable Levels (Berenice Ellsworth RN) Interventions: Assess Verbal and Nonverbal Behavioral Indicators of Anxiety; Assist Patient to Identify and Verbalize Symptoms of Anxiety; Identify and Demonstrate Techniques to Control Anxiety; Assist Patient with Coping Mechanisms to Manage Anxiety; Provide Theraputic Touch for the Patient; Explain to Patient, Using a Calm Reassuring Approach and Nonmedical Terms, All Activities, Procedures, and Concerns; Instruct Patient and Family about Post Discharge Care, Limitations, Symptoms to Report and Resources Available (Berenice Ellsworth RN) Outcome: Patient will Identify, Verbalize and Demonstrate Techniques to Control Anxiety (Berenice Ellsworth RN) Status: Ongoing (Berenice Ellsworth RN) Outcome: Patient's Posture, Facial Expressions, Gestures and Activity Level will Reflect Decreased Anxiety (Berenice Ellsworth RN) Status: Ongoing (Berenice Ellsworth RN) Outcome: Patient will Verbalize a Sense of Control and/or Acceptance of the Situation (Berenice Ellsworth RN) Status: Ongoing (Berenice Ellsworth RN) Outcome: Patient will Identify and Utilize Support Person (Berenice Ellsworth RN) Status: Ongoing (eBrenice Ellsworth RN) Infection State: Risk For (Berenice Ellsworth RN) Related To: Prolonged Labor or Induction; Premature/Prolonged Rupture of Membranes (Berenice Ellsworth RN) Goal(s): The Patient will be Free of Infection, Vital Signs Stable and Lab Work within Normal Parameters (Berenice Ellsworth RN) Interventions: Instruct and Reinforce Proper Handwashing, Hygiene, and Care Techniques to Patient and Family; Monitor Vital Signs; Monitor Patient for the Following Signs of Infection: Fever, Abdominal Tenderness, Unusual Discharge; Monitor Aminiotic Fluid, Urine and Lochia for Color and Odor; Observe Wounds, Incisions and Invasive Line Sites for Redness, Drainage and Edema; Assess IV Sites per Hospital Policy; Monitor Lab and Test Results and Notify Provider of Abnormal Findings; Assess Nutritional Status and Promote Good Nutrition (Berenice Ellsworth RN) Outcome: Patient will Remain Free of Infection (Berenice Ellsworth RN) Status: Ongoing (Berenice Ellswotrh RN) Outcome: Infection will be Recognized Early to Allow for Prompt Treatment (Berenice Ellsworth RN) Status: Ongoing (Berenice Ellsworth RN) Outcome: Patient will have Vital Signs Within Expected Range (Berenice Ellsworth RN) Status: Ongoing (Berenice Ellsworth RN) Injury State: Risk For (Berenice Ellsworth RN) Related To: Labor and Delivery Process; Anesthesia; Risk to Status (Berenice Ellsworth RN) Goal(s): Patient will Remain Free from Injury (Berenice Ellsworth RN) Interventions: Monitoring as per Hospital Protocol; Assess Neurological Status; Perform Risk Assessment of Patients with Induction and ; Perform Fall Risk Assessment and Prevention per Hospital Protocol; Perform DVT Risk Assessment and Prophylaxis per Hospital Protocol; Ensure that Oxygen, Suction, and Resuscitation Medications and Equipment are Readily Available; Confirm Patient ID Prior to Procedure(s) and Medication Administration per Hospital Policy (Berenice Ellsworth RN) Outcome: Successful Fall Risk Prevention (Berenice Ellsworth RN) Status: Ongoing (Berenice Ellsworth, RN) Outcome: Patient will Deliver without Adverse Sequela (Berenice Ellsworth RN) Status: Ongoing (Berenice Ellsworth RN) Outcome: Patient's Neurological Status will Remain Stable (Berenice Ellsworth RN) Status: Ongoing (Berenice Ellsworth RN)
[2017-02-14 08:59] VITALS: BP 100/55
[2017-02-14] MEDS: FERROUS SULFATE 325 MG TABLET PO SCH (09:10)
[2017-02-14] MEDS: DOCUSATE SODIUM 100 MG CAPSULE PO SCH (09:10)
[2017-02-14] MEDS: SENNOSIDES/DOCUSATE 8.6-50 MG 1 EACH TABLET PO SCH (09:10)
[2017-02-14] MEDS: PRENATAL VITAMIN W-O CA NO5/FE FUMARATE/FA CAPSULE PO SCH (09:10)
[2017-02-14] MEDS: FAMOTIDINE 20 MG TABLET PO SCH (09:11)
--- NOTE | 2017-02-14 10:06 | PDOC PROGRESS REPORT ---
Subjective-OB Subjective: Post Delivery Day: 31 year old. Denies any needs at this time Doing well, ready to go home, family at BS, voiding, eating well, scant lochia Physical Exam (OB) Vital Signs: Temp Pulse Resp BP Pulse Ox 97.7 F 66 15 100/55 L 100 02/14/17 07:36 02/14/17 07:36 02/14/17 07:36 02/14/17 07:36 02/14/17 07:36 Intake & Output 02/13/17 02/14/17 02/15/17 06:59 06:59 06:59 Intake Total 200 Balance 200 Weight 80.45 kg - Lochia Lochia Amount: Small 10-25 ml Lochia Color: Rubra/Red - Abdomen Description: Soft, Round Hernia Present: No Fundal Description: Firm, Midline Fundal Height: u/u - u/2 Objective-Diagnostic Laboratory: 02/13/17 11:22 02/13/17 11:22 WBC 12.8 H RBC 3.71 L Hgb 10.6 L Hct 31.1 L MCV 84 MCH 28.5 MCHC 33.9 RDW 15.0 H Plt Count 196 Assessment and Plan(PN) - Assessment and Plan (1) Delivery normal Is this a current diagnosis for this admission?: Yes (2) Anemia Qualifiers: Anemia type: unspecified type Qualified Code(s): D64.9 - Anemia, unspecified Is this a current diagnosis for this admission?: Yes - Time Spent with Patient Time with patient: Less than 15 minutes Medications reviewed and adjusted accordingly: Yes - Disposition Anticipated Discharge: Home Within: Other - home today
--- NOTE | 2017-02-14 10:10 | PDOC DISCHARGE SUMMARY ---
Final Diagnosis Discharge Date: 02/14/17 - Final Diagnosis (1) Delivery normal Is this a current diagnosis for this admission?: Yes (2) Anemia Is this a current diagnosis for this admission?: Yes Discharge Data - Discharge Medication Home Medications: Vit/Iron Fumarate/FA [ Tablet] 1 tab PO DAILY 02/12/17 Gestational Age: 37.2 Reason(s) for Admission: Induction of Labor, PROM, Group B Strep Positive Procedures: Ultrasound Intrapartum Procedure(s): Spontaneous Vaginal Delivery - Data Baby 1 Female at 1 minute: 9 at 5 minutes: 9 Weight: 2.778 kg Home with Mother: Yes Complications: No - Diagnosis Test Laboratory: Temp Pulse Resp BP Pulse Ox 97.7 F 66 15 100/55 L 100 02/14/17 07:36 02/14/17 07:36 02/14/17 07:36 02/14/17 07:36 02/14/17 07:36 02/12/17 02/12/17 02/13/17 16:11 17:57 11:22 RBC 4.25 3.71 L Hgb 11.7 L 10.6 L Hct 35.6 L 31.1 L Urine Opiates Screen NEGATIVE - Discharge information/Instructions Discharge Activity: Activity As Tolerated, No Lifting Over 10 Pounds, Pelvic Rest, No tub bath Discharge Diet: As Tolerated, Regular Disposition: HOME, SELF-CARE Follow [facility] with: [facility] in: 4, Weeks
== END 2017-02-14 13:47 | disposition home or self-care (01) | DRG 775 ==
LOC: LC 16:02 → LR 17:01 → 2S 02-13 01:22
PROVIDERS: ADMIT Specialist; ATTEND Specialist
PROC: 10E0XZZ Delivery of Products of Conception, External Approach (ICD-10-PCS; principal; 2017-02-12)
PROC: 3E0P7GC Introduction of Other Therapeutic Substance into Female Reproductive, Via Natural or Artificial Opening (ICD-10-PCS; 2017-02-12)
PROC: 4A1HXCZ Monitoring of Products of Conception, Cardiac Rate, External Approach (ICD-10-PCS; 2017-02-12)
DX: O42.02 Full-term premature rupture of membranes, onset of labor within 24 hours of rupture (principal); O99.824 Streptococcus B carrier state complicating childbirth; O99.02 Anemia complicating childbirth; D64.9 Anemia, unspecified; O99.344 Other mental disorders complicating childbirth; F41.9 Anxiety disorder, unspecified; O69.81X0 Labor and delivery complicated by cord around neck, without compression, not applicable or unspecified; Z28.82 Immunization not carried out because of caregiver refusal; Z37.0 Single live birth; Z3A.37 37 weeks gestation of pregnancy
CPT/HCPCS: 36415; 80307; 81005; 84112; 85025; 85027; 86592; 86850; 86900; 86901; 88307; J2540; J2590; J3490

== ENCOUNTER 2017-08-07 19:06 | Emergency (ER) | payer MEDICAID ==
[2017-08-07 19:40] VITALS: BP 131/76
[2017-08-07] MEDS ORDERED: ACETAMINOPHEN 325 MG TABLET PO ONE ×2 (19:58)
[2017-08-07] MEDS ORDERED: AMOXICILLIN TRIHYDRATE 500 MG CAPSULE PO ONE (20:03)
[2017-08-07] MEDS ORDERED: IBUPROFEN 800 MG TABLET PO ONE (20:03)
--- NOTE | 2017-08-07 20:04 | ER Document Report ---
ED General - General Chief Complaint: Fever Stated Complaint: FEVER Time Seen by Provider: 08/07/17 19:59 Mode of Arrival: Ambulatory Information source: Patient Notes: 31-year-old female presents with complaints of sore throat , fevers, body aches . Pt notes multiple sick family members. TRAVEL OUTSIDE OF THE [place] IN LAST 30 DAYS: No - HPI Onset: Other Onset/Duration: Persistent Quality of pain: Achy Severity: Mild Pain Level: 1 Associated symptoms: Body/muscle aches, Fever, Sore throat Exacerbated by: Denies Relieved by: Denies Similar symptoms previously: No Recently seen / treated by doctor: No - Related Data Allergies/Adverse Reactions: No Known Allergies Allergy (Unverified 01/22/14 22:40) Past Medical History - Social History Smoking Status: Never Smoker Cigarette use (# per day): No Chew tobacco use (# tins/day): No Smoking Education Provided: No Family History: None, Reviewed & Not Pertinent Patient has suicidal ideation: No Patient has homicidal ideation: No - Past Medical History Cardiac Medical History: Denies: Hx Coronary Artery Disease, Hx Heart Attack, Hx Hypertension Pulmonary Medical History: Denies: Hx Asthma, Hx Bronchitis, Hx COPD, Hx Pneumonia Neurological Medical History: Denies: Hx Cerebrovascular Accident, Hx Seizures Renal/ Medical History: Denies: Hx Peritoneal Dialysis Musculoskeltal Medical History: Denies Hx Arthritis Psychiatric Medical History: Reports: Hx Anxiety - Immunizations Immunizations up to date: Yes Hx Diphtheria, Pertussis, Tetanus Vaccination: Yes Review of Systems - Review of Systems Notes: REVIEW OF SYSTEMS: CONSTITUTIONAL : Admits fever EENT: Admits to sore throat CARDIOVASCULAR: Denies chest pain. Denies palpitations or racing or irregular heart beat. Denies ankle edema. RESPIRATORY: Denies cough, cold, or chest congestion. Denies shortness of breath, difficulty breathing, or wheezing. GASTROINTESTINAL: Denies abdominal pain or distention. Denies nausea, vomiting , or diarrhea. Denies blood in vomitus, stools, or per rectum. Denies black, tarry stools. Denies constipation. GENITOURINARY: Denies difficulty urinating, painful urination, burning, frequency, blood in urine, or discharge. FEMALE GENITOURINARY: Denies vaginal bleeding, heavy or abnormal periods, irregular periods. Denies vaginal discharge or odor. MUSCULOSKELETAL: Denies back or neck pain or stiffness. Denies joint pain or swelling. SKIN: Denies rash, lesions or sores. HEMATOLOGIC : Denies easy bruising or bleeding. LYMPHATIC: Denies swollen, enlarged glands. NEUROLOGICAL: Denies confusion or altered mental status. Denies passing out or loss of consciousness. Denies dizziness or lightheadedness. Denies headache. Denies weakness or paralysis or loss of use of either side. Denies problems with gait or speech. Denies sensory loss, numbness, or tingling. Denies seizures. PSYCHIATRIC: Denies anxiety or stress. Denies depression, suicidal ideation, or homicidal ideation. ALL OTHER SYSTEMS REVIEWED AND NEGATIVE. PHYSICAL EXAMINATION: GENERAL: Febrile but in no acute distress HEAD: Atraumatic, normocephalic. EYES: Pupils equal round and reactive to light, extraocular movements intact, conjunctiva are normal. ENT: Bilateral exudative tonsills uvula midline airway patent NECK: Bilateral anterior cervical lymphadenopathy LUNGS: Breath sounds clear to auscultation bilaterally and equal. No wheezes rales or rhonchi. HEART: Tachycardic ABDOMEN: Soft, nontender, nondistended abdomen. No guarding, no rebound. No masses appreciated. Female : deferred Musculoskeletal: Normal range of motion, no pitting or edema. No cyanosis. NEUROLOGICAL: Cranial nerves grossly intact. Normal speech, normal gait. Normal sensory, motor exams PSYCH: Normal mood, normal affect. SKIN: Hot to touch Dictation was performed using [employer] voice recognition software Physical Exam - Vital signs Vitals: Temp Pulse Resp BP Pulse Ox 103.0 F H 113 H 18 131/76 H 99 08/07/17 19:35 08/07/17 19:35 08/07/17 19:35 08/07/17 19:35 08/07/17 19:35 Course - Re-evaluation Re-evalutation: 08/07/17 21:24 Patient's presentation is consistent with strep pharyngitis. Patient was offered pills versus IM injection she wishes to have the pills instead. Patient otherwise is noted to be febrile tachycardic given pain and antipyretic control she was given first dose of antibiotics here as well as very strict return precautions. Patient states she understands and will return as needed Patient does meet sepsis criteria however this is expected due to strep pharyngitis After performing a Medical Screening Examination, I estimate there is LOW risk for ACUTE CORONARY SYNDROME, RESPIRATORY FAILURE, OR MENINGITIS, thus I consider the discharge disposition reasonable. I have reevaluated this patient multiple times and no significant life threatening changes are noted. The patient and I have discussed the diagnosis and risks, and we agree with discharging home with close follow-up. We also discussed returning to the Emergency Department immediately if new or worsening symptoms occur. We have discussed the symptoms which are most concerning (e.g., changing or worsening pain, trouble swallowing or breathing, neck stiffness, fever) that necessitate immediate return. - Vital Signs Vital signs: Temp Pulse Resp BP Pulse Ox 103.0 F H 113 H 18 131/76 H 99 08/07/17 19:35 08/07/17 19:35 08/07/17 19:35 08/07/17 19:35 08/07/17 19:35 Discharge - Discharge Clinical Impression: Strep pharyngitis Fever Qualifiers: Fever type: unspecified Qualified Code(s): R50.9 - Fever, unspecified Condition: Stable Disposition: HOME, SELF-CARE Instructions: Fever ([facility]), Strep Throat ([facility]) Additional Instructions: Follow up with your physician tomorrow for further care or return to the ED IMMEDIATELY if symptoms worsen or new concerns occur. If you cannot afford to follow up with your primary care physician a list of low cost clinics have been provided at the end of your discharge papers as well. Prescriptions: Amoxicillin 875 mg PO BID #20 tablet
== END 2017-08-07 20:20 | disposition home or self-care (01) ==
LOC: ER 19:06
DX: J02.0 Streptococcal pharyngitis (principal); R50.9 Fever, unspecified; M79.1 Myalgia; R00.0 Tachycardia, unspecified
CPT/HCPCS: 99283; J3490

== ENCOUNTER 2019-02-12 17:51 | Emergency (ER) | payer SELFPAY ==
[2019-02-12 18:02] VITALS: BP 148/70
[2019-02-12] MEDS ORDERED: ACETAMINOPHEN 325 MG TABLET PO ONE (18:37)
[2019-02-12] MEDS ORDERED: LIDOCAINE 1% INJ-PF (10 MG/ML) 30 ML SDV INJ ONE (19:14)
[2019-02-12] MEDS ORDERED: DIPH/PERTUSS(ACELL)/TETANUS VAC/PF 0.5 ML SYR (>=10YO) IM ONE (19:15)
--- NOTE | 2019-02-12 19:18 | ER Document Report ---
ED Wound - General Chief Complaint: Laceration Stated Complaint: LEFT HAND LACERATION Time Seen by Provider: 02/12/19 18:23 Notes: 33-year-old female presents to the emergency department for laceration on palm of left hand that happened at 5 PM today. She states she was cutting an apple and the knife slipped and cut her. It is located at the base of the second metacarpal on the palmar side. She immediately covered it and wrapped in Saran wrap. She does not recall when her last tetanus shot was. She has no other complaints. TRAVEL OUTSIDE OF THE [place] IN LAST 30 DAYS: No - Related Data Allergies/Adverse Reactions: No Known Allergies Allergy (Unverified 01/22/14 22:40) Past Medical History - Social History Smoking Status: Never Smoker Frequency of alcohol use: None Drug Abuse: None Family History: None, Reviewed & Not Pertinent Patient has suicidal ideation: No Patient has homicidal ideation: No - Past Medical History Cardiac Medical History: Denies: Hx Coronary Artery Disease, Hx Heart Attack, Hx Hypertension Pulmonary Medical History: Denies: Hx Asthma, Hx Bronchitis, Hx COPD, Hx Pneumonia Neurological Medical History: Denies: Hx Cerebrovascular Accident, Hx Seizures Renal/ Medical History: Denies: Hx Peritoneal Dialysis Musculoskeletal Medical History: Denies Hx Arthritis Psychiatric Medical History: Reports: Hx Anxiety - Immunizations Immunizations up to date: Yes Hx Diphtheria, Pertussis, Tetanus Vaccination: Yes Physical Exam - Vital signs Vitals: Temp Pulse Resp BP Pulse Ox 98.2 F 79 18 148/70 H 98 02/12/19 18:02 02/12/19 18:02 02/12/19 18:02 02/12/19 18:02 02/12/19 18:02 - Notes Notes: PHYSICAL EXAMINATION: Reviewed vital signs and charting by RN GENERAL: Alert, interacts well. No acute distress. HEAD: Normocephalic, atraumatic. EXTREMITIES: Moves all 4 extremities spontaneously. No edema, No cyanosis. BACK: no cervical, thoracic, lumbar midline tenderness. No saddle anesthesia, normal distal neurovascular exam. NEUROLOGICAL: Alert and oriented x3. Normal speech. PSYCH: Normal affect, normal mood. SKIN: Warm, dry, normal turgor. 2 cm linear laceration palmar aspect of left hand at the base of the second metacarpal. Minor oozing.. Course - Re-evaluation Re-evalutation: 02/12/19 19:17 After cleaning the wound will require suture repair. Will give patient tetanus booster. Will use local anesthesia 02/12/19 20:10 Patient received tetanus booster, and laceration repair complete. Patient tolerated procedure well she is given strict return precautions and instructions for suture removal. - Vital Signs Vital signs: Temp Pulse Resp BP Pulse Ox 98.2 F 79 18 148/70 H 98 02/12/19 18:02 02/12/19 18:02 02/12/19 18:02 02/12/19 18:02 02/12/19 18:02 Procedures - Laceration/Wound Repair Left Hand Wound length (cm): 2 Wound's Depth, Shape: Superficial Laceration pre-procedure: Sterile PPE donned Anesthetic type: 1% Lidocaine Wound explored: Clean Wound Debrided: Minimal Wound Repaired With: Sutures Suture Size/Type: 5:0, Ethilon Post-procedure NV exam normal: Yes Complications: No Discharge - Discharge Clinical Impression: Laceration Disposition: HOME, SELF-CARE Instructions: Antibiotic Ointment Protection ([facility]), Laceration Care ([facility]), Soap Cleansing ([facility]), Tetanus Immunization Given ([facility]) Additional Instructions: Please return to your primary doctor, the ED, or an urgent care in 7 days for suture removal. Return immediately if you develop spreading redness around the wound, pus from the wound, worsening pain, or a fever of >101. Keep the area clean and dry. Wash gently with soap and water twice daily and cover with antibiotic ointment.
== END 2019-02-12 20:36 | disposition home or self-care (01) ==
LOC: ER 17:51
DX: S61.412A Laceration without foreign body of left hand, initial encounter (principal); W26.0XXA Contact with knife, initial encounter; Z23 Encounter for immunization
CPT/HCPCS: 99282; 90471; 90715; 12001; J3490

== ENCOUNTER 2020-01-06 17:17 | Emergency (ER) | payer SELFPAY ==
[2020-01-06] MEDS ORDERED: ACETAMINOPHEN 325 MG TABLET PO ONE (18:26)
--- NOTE | 2020-01-06 18:29 | ER Document Report ---
ED Medical Screen (RME) - General Chief Complaint: Congestion Stated Complaint: BODY ACHES,COUGH,CONGESTION Time Seen by Provider: 01/06/20 18:22 Mode of Arrival: Ambulatory Information source: Patient Notes: pt presents with c/o productive cough x 1 week, fever and body aches with sore throat since yesterday. Recent exposure to strep. No flu vaccine this year. Denies abd pain, vomiting/diarrhea. Last took advil two hours ago. I have greeted and performed a rapid initial assessment of this patient. A comprehensive ED assessment and evaluation of the patient, analysis of test results and completion of the medical decision making process will be conducted by additional ED providers. TRAVEL OUTSIDE OF THE [place] IN LAST 30 DAYS: No - Related Data Allergies/Adverse Reactions: No Known Allergies Allergy (Unverified 01/22/14 22:40) Past Medical History - Social History Family history: None - Past Medical History Cardiac Medical History: Denies: Hx Coronary Artery Disease, Hx Heart Attack, Hx Hypertension Pulmonary Medical History: Denies: Hx Asthma, Hx Bronchitis, Hx COPD, Hx Pneumonia Neurological Medical History: Denies: Hx Cerebrovascular Accident, Hx Seizures Renal/ Medical History: Denies: Hx Peritoneal Dialysis Musculoskeltal Medical History: Denies Hx Arthritis Psychiatric Medical History: Reports: Hx Anxiety - Immunizations Immunizations up to date: Yes Hx Diphtheria, Pertussis, Tetanus Vaccination: Yes Physical Exam - Vital signs Vitals: Temp Pulse Resp BP Pulse Ox 100.8 F H 121 H 20 128/65 H 99 01/06/20 17:40 01/06/20 17:40 01/06/20 17:40 01/06/20 17:40 01/06/20 17:40 Course - Vital Signs Vital signs: Temp Pulse Resp BP Pulse Ox 100.8 F H 121 H 20 128/65 H 99 01/06/20 17:40 01/06/20 17:40 01/06/20 17:40 01/06/20 17:40 01/06/20 17:40
--- NOTE | 2020-01-06 18:54 | RADIOLOGY REPORT (SQ) ---
EXAM DESCRIPTION: CHEST 2 VIEWS COMPLETED DATE/TIME: 01/06/2020 6:41 pm REASON FOR STUDY: cough fever COMPARISON: None. EXAM PARAMETERS: NUMBER OF VIEWS: two views TECHNIQUE: Digital Frontal and Lateral radiographic views of the chest acquired. RADIATION DOSE: NA LIMITATIONS: none FINDINGS: LUNGS AND PLEURA: No opacities, masses or pneumothorax. No pleural effusion. MEDIASTINUM AND HILAR STRUCTURES: No masses or contour abnormalities. HEART AND VASCULAR STRUCTURES: Heart normal size. No evidence for failure. BONES: No acute findings. HARDWARE: None in the chest. OTHER: No other significant finding. IMPRESSION: NO ACUTE RADIOGRAPHIC FINDING IN THE CHEST. TECHNICAL DOCUMENTATION: JOB ID: [id number] 2010 [employer]- All Rights Reserved Reading location - IP/workstation name: [email or web address]
[2020-01-06 19:12] LABS: A TYPE INFLUENZA AG NEGATIVE (NEGATIVE); B INFLUENZA AG NEGATIVE (NEGATIVE)
[2020-01-06 19:32] VITALS: BP 111/54
[2020-01-06] MEDS ORDERED: PENICILLIN V POTASSIUM 500 MG TABLET PO ONE (19:42)
== END 2020-01-06 19:52 | disposition home or self-care (01) ==
LOC: ER 17:17
DX: J02.9 Acute pharyngitis, unspecified (principal); R50.9 Fever, unspecified; J35.1 Hypertrophy of tonsils; Z20.818 Contact with and (suspected) exposure to other bacterial communicable diseases
CPT/HCPCS: 71046; 87070; 87804; 87880; 99283

== ENCOUNTER 2020-08-19 07:37 | Outpatient (CLI) | payer MEDICAID ==
[2020-08-19 08:21] LABS: APPEARANCE,URINE CLEAR; BILIRUBIN,URINE NEGATIVE (NEGATIVE); COLOR,URINE YELLOW; GLUCOSE, URINE NEGATIVE (NEGATIVE); KETONES,URINE NEGATIVE (NEGATIVE); LEUKOCYTE ESTERASE,URINE NEGATIVE (NEGATIVE); NITRITE,URINE NEGATIVE (NEGATIVE); PROTEIN,URINE NEGATIVE (NEGATIVE); URINE SPECIFIC GRAVITY 1.008; UROBILINOGEN,URINE NEGATIVE mg/dL (<2.0)
[2020-08-19 09:03] LABS: URINE AMPHETAMINES SCREEN NEGATIVE; URINE BARBITURATES SCREEN NEGATIVE; URINE BENZODIAZEPINES SCREEN NEGATIVE; URINE COCAINE SCREEN NEGATIVE; URINE MARIJUANA (THC) SCREEN NEGATIVE; URINE METHADONE SCREEN NEGATIVE; URINE PHENCYCLIDINE SCREEN NEGATIVE
== END 2020-08-19 11:00 | disposition home or self-care (01) ==
LOC: LC 07:37
PROVIDERS: ATTEND Obstetrics & Gynecology
DX: O47.1 False labor at or after 37 completed weeks of gestation (principal); Z3A.38 38 weeks gestation of pregnancy; Z02.83 Encounter for blood-alcohol and blood-drug test
CPT/HCPCS: 80307; 81005

== ENCOUNTER 2020-08-24 17:02 | Outpatient (CLI) | payer MEDICAID ==
[2020-08-24 18:21] LABS: APPEARANCE,URINE SLIGHTLY-CLOUDY; BILIRUBIN,URINE NEGATIVE (NEGATIVE); COLOR,URINE YELLOW; GLUCOSE, URINE NEGATIVE (NEGATIVE); KETONES,URINE NEGATIVE (NEGATIVE); LEUKOCYTE ESTERASE,URINE TRACE (NEGATIVE); NITRITE,URINE NEGATIVE (NEGATIVE); PROTEIN,URINE NEGATIVE (NEGATIVE); URINE SPECIFIC GRAVITY 1.008; UROBILINOGEN,URINE NEGATIVE mg/dL (<2.0)
[2020-08-24 18:43] LABS: URINE AMPHETAMINES SCREEN NEGATIVE; URINE BARBITURATES SCREEN NEGATIVE; URINE BENZODIAZEPINES SCREEN NEGATIVE; URINE COCAINE SCREEN NEGATIVE; URINE MARIJUANA (THC) SCREEN NEGATIVE; URINE METHADONE SCREEN NEGATIVE; URINE PHENCYCLIDINE SCREEN NEGATIVE
--- NOTE | 2020-08-24 19:18 | Non Stress Test Report ---
Non Stress Test Datetime Report Generated by CPN: 08/24/2020 19:17 DEMOGRAPHIC Test Number: 2 Test Number: 1 EGA NST: 39.4 EGA NST: 38.6 INDICATION Indication for Study (NST) Other: IUP at 39.4 Indication for Study (NST) Other: LC VITAL SIGNS Temperature - NST: 98.8 Temperature - NST: 98.7 Pulse - NST: 83 Pulse - NST: 78 RESP - NST: 18 RESP - NST: 16 NBPSYS NST: 96 NBPSYS NST: 109 NBPDIA NST: 53 NBPDIA NST: 70 MONITORING Monitor Explained: Monitor Explained; Test Explained; Patient Verbalized Understanding Monitor Explained: Monitor Explained; Test Explained; Patient Verbalized Understanding Time on Monitor: 08/24/2020 17:21 Time on Monitor: 08/19/2020 07:56 Time off Monitor: 08/24/2020 18:20 NST Duration: 59 NST INTERVENTIONS NST Interventions: PO Hydration NST Interventions: PO Hydration; Reposition Patient Physician Notified NST: Dr. Tellez Physician Notified NST: C Ashford BABY A: [id number] BABY A Movement : Present Movement : Present Contraction Frequency : Irreg Contraction Frequency : 6-8 FHR Baseline : 140 FHR Baseline : 140 Accelerations : 15X15 Accelerations : 15X15 Decelerations : None Decelerations : None Variability : Moderate 6-25bpm Variability : Moderate 6-25bpm NST Review: Meets Criteria for Reactive NST NST Review: Meets Criteria for Reactive NST NST Review and Verified By : Tianna SCHUSTER Results: Reactive NST Results: Reactive NST COMMENTS NST Comments: Dr. Tellez reviewed strip NST REPORT Report Trigger: Send Report
== END 2020-08-24 18:51 | disposition home or self-care (01) ==
LOC: LC 17:02
PROVIDERS: ATTEND Obstetrics & Gynecology
DX: O47.1 False labor at or after 37 completed weeks of gestation (principal); Z3A.39 39 weeks gestation of pregnancy
CPT/HCPCS: 80307; 81005

== ENCOUNTER 2020-08-25 05:59 | Inpatient (IN) | payer MEDICAID ==
[2020-08-25] MEDS ORDERED: OXYTOCIN 10 UNIT/ML VIAL ONE (06:19)
[2020-08-25] MEDS ORDERED: OXYTOCIN/0.9 % SODIUM CHLORIDE 30 UNIT/500 ML RTUINJ ONE (06:20)
[2020-08-25] MEDS ORDERED: MISOPROSTOL 0.2 MG TABLET ONE (06:20)
[2020-08-25] MEDS ORDERED: LIDOCAINE 1% INJ-PF (10 MG/ML) 30 ML SDV ONE (06:20)
[2020-08-25] MEDS ORDERED: RINGERS SOLUTION,LACTATED 1,000 ML IV PRN (06:20)
[2020-08-25] MEDS ORDERED: RINGERS SOLUTION,LACTATED 1,000 ML IV ONE (06:20)
--- NOTE | 2020-08-25 06:41 | Admission Physical ---
Datetime Report Generated by CPN: 08/25/2020 06:40 CURRENT ADMISSION Chief Complaint: Uterine Contractions Indication for Induction: Not Applicable Admit Impression : Term, Intrauterine ; Active Labor Admit Plan: Admit to Unit; Initiate Labor Protocol ALLERGIES Medication Allergies: No Medication Allergies: No Known Allergies (08/19/2020) Latex: No Latex Allergies OBSTETRICAL HISTORY EDC: 08/27/2020 00:00 : 6 Para: 5 Term: 4 : 1 SAB: 0 IAB: 0 Livin Gestational Diabetes: No Rh Sensitization: No Incompetent Cervix: No AMI: No Infertility: No ART Treatment: No Uterine Anomaly: No IUGR: No Hx Previous C/S: No Macrosomia: No Hx Loss/Stillborn: No PIH: No Hx : No Placenta Previa/Abruption: No Depression/PP Depression: No PTL/PROM: No Post Hemorrhage: No Current Procedures: Ultrasound; NST Obstetrical History Comments: G1- 2006, , G2- 2010, , term G3 -2012, , term G4- 2014, , term G5- 2017, , term G6- current SEE RECORDS Alcohol: No Marijuana : No Cocaine: No Other Illicit Drugs: No Cigarettes: Never Smoker. 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 Heart Disease: No Hosp/Surgery: Yes Autoimmune Disorder: No Anesthetic Complications: No Kidney Disease: No Abnormal Pap Smear: No Neuro/Epilepsy: No Psychiatric Disorders: Yes Other Medical Diseases: No Hepatitis/Liver Disease: No Significant Family History: No Varicosities/Phlebitis: No Trauma/Violence : No Thyroid Dysfunction: No Medical History Comments: anxiety, childbirth INFECTIOUS HISTORY Gonorrhea: No Genital Herpes: No Chlamydia: No Tuberculosis: No Syphilis: No Hepatitis: No HIV/AIDS Exposure: No Rash or Viral Illness: No HPV: No PHYSICAL EXAM General: Normal HEENT: Normal Neurologic: Normal Thyroid: Normal Heart: Normal Lungs: Normal Breast: Normal Back: Normal Abdomen: Normal Genitourinary Exam: Normal Extremities: Normal DTRs: Normal Pelvic Type: Adequate Vital Signs: Reviewed; Within Normal Limits VAGINAL EXAM Dilatation: 8 Effacement: 100 Station: -2 MEMBRANES Pooling: Negative Membranes: Intact FETUS A EGA: 39.5 Monitoring: External US FHR- Baseline: 150 Variability: Minimal - Undetectable to <=5bpm Accelerations: Absent Decelerations: None FHR Category: Category II FHR Comments: monitor closely for increasing/decreasing status Estimated Weight (gm): 3900 Presentation: Vertex PLANS FOR LABOR AND DELIVERY Pain Management: Epidural Feeding Preference: Breast Circumcision: N/A INFORMED CONSENT Signature: with User ID: [email or web address]
[2020-08-25 07:05] LABS: APPEARANCE,URINE CLOUDY; BILIRUBIN,URINE NEGATIVE (NEGATIVE); COLOR,URINE YELLOW; GLUCOSE, URINE NEGATIVE (NEGATIVE); KETONES,URINE NEGATIVE (NEGATIVE); LEUKOCYTE ESTERASE,URINE LARGE (NEGATIVE); NITRITE,URINE NEGATIVE (NEGATIVE); PROTEIN,URINE NEGATIVE (NEGATIVE); URINE SPECIFIC GRAVITY 1.013; UROBILINOGEN,URINE NEGATIVE mg/dL (<2.0)
[2020-08-25 07:08] LABS: ABSOLUTE EOSINOPHILS # (AUTO) 0.1 10^3/uL (0.0-0.6); ABSOLUTE LYMPHOCYTES (AUTO) 2.4 10^3/uL (0.5-4.7); ABSOLUTE MONOCYTES (AUTO) 0.7 10^3/uL (0.1-1.4); ABSOLUTE NEUT (AUTO) 7.6 10^3/uL (1.7-8.2); BASOPHILS % (AUTO) 0.3 % (0-2); EOSINOPHILS % (AUTO) 0.9 % (0-6); HEMATOCRIT 33.3 % (36.0-47.0); HEMOGLOBIN 11.1 g/dL (12.0-15.5); MEAN CORPUSCULAR HEMOGLOBIN 25.7 pg (27.0-33.4); MEAN CORPUSCULAR HGB CONC 33.5 g/dL (32.0-36.0); MEAN CORPUSCULAR VOLUME 77 fl (80-97); MONOCYTES % (AUTO) 6.5 % (3-13); PLATELET COUNT 191 10^3/uL (150-450); RED BLOOD COUNT 4.35 10^6/uL (3.72-5.28); RED CELL DISTRIBUTION WIDTH 16.6 % (11.5-14.0); SEGMENTED NEUTROPHILS % (AUTO) 70.3 % (42-78); TOTAL CELLS COUNTED % (AUTO) 100 %; WHITE BLOOD COUNT 10.8 10^3/uL (4.0-10.5)
[2020-08-25] MEDS ORDERED: DIPH/PERTUSS(ACELL)/TETANUS VAC/PF 0.5 ML SYR (>=10YO) IM PRN (07:32)
[2020-08-25] MEDS ORDERED: ZOLPIDEM TARTRATE 5 MG TABLET PO PRN (07:32)
[2020-08-25] MEDS ORDERED: ACETAMINOPHEN WITH CODEINE #3 TABLET PO PRN ×2 (07:32)
[2020-08-25] MEDS ORDERED: OXYTOCIN/0.9 % SODIUM CHLORIDE 30 UNIT/500 ML RTUINJ IV PRN (07:32)
[2020-08-25] MEDS ORDERED: ACETAMINOPHEN 325 MG TABLET PO PRN (07:32)
[2020-08-25] MEDS ORDERED: PROMETHAZINE HCL 25 MG SUPP.RECT PR PRN (07:32)
[2020-08-25] MEDS ORDERED: ACETAMINOPHEN 650 MG SUPP.RECT PR PRN (07:32)
[2020-08-25] MEDS ORDERED: DIBUCAINE 1% OINTMENT 28 GM TP PRN (07:32)
[2020-08-25] MEDS ORDERED: MEASLES,MUMPS&RUBELLA VACC/PF 0.5 ML VIAL SUBCUT PRN (07:32)
[2020-08-25] MEDS ORDERED: PROMETHAZINE HCL INJ 25 MG/1 ML VIAL IV PRN (07:32)
[2020-08-25] MEDS ORDERED: GLYCERIN/WITCH HAZEL LEAF 1 EACH MED..WIPE TP PRN (07:32)
[2020-08-25] MEDS ORDERED: DIPHENHYDRAMINE HCL 25 MG CAPSULE PO PRN (07:32)
[2020-08-25] MEDS ORDERED: MAGNESIUM HYDROXIDE SUSP 30 ML UDCUP PO PRN (07:32)
[2020-08-25] MEDS ORDERED: PROMETHAZINE HCL 25 MG TABLET PO PRN (07:32)
[2020-08-25] MEDS ORDERED: NA PHOS,M-B/NA PHOS,DI-BA (ADULT) 133 ML ENEMA PR PRN (07:32)
[2020-08-25] MEDS ORDERED: PSEUDOEPHEDRINE HCL 30 MG TABLET PO PRN (07:32)
[2020-08-25] MEDS ORDERED: IBUPROFEN 800 MG TABLET ONE (08:32)
[2020-08-25] MEDS ORDERED: BENZOCAINE/MENTHOL AEROSOL SPRAY 56 ML ONE (08:32)
[2020-08-25] MEDS: BENZOCAINE/MENTHOL AEROSOL SPRAY 56 ML TOP PRN ×2 (08:45→11:34)
--- NOTE | 2020-08-25 09:13 | Warning Signs in Babies ---
VOD Warning Signs Datetime Report Generated by [facility]: 08/25/2020 09:13 VOD#608 -Warning Signs in Babies: Needs to be viewed. (08/19/2020 07:58:Monalias Villafuerte RN)
--- NOTE | 2020-08-25 09:13 | Birth Certificate Data ---
Cert Data Datetime Report Generated by CPN: 08/25/2020 09:13 CERTIFICATE DATA 47a. Care: Yes (08/19/2020 07:58:Kristen Howard RN) 48b. Now Livin (08/19/2020 07:58:Quin Telles RN) RISK FACTORS IN THIS 49a. Diabetes: No (08/19/2020 07:58:Kristen Howard RN) 49b. Hypertension: No (08/19/2020 07:58:Kristen Howard RN) 49c. Previous Births: 1 (08/19/2020 07:58:Quin Telles RN) 49d. Stillborns: No (08/19/2020 07:58:Kristen Howard RN) 49d. IUGR: No (08/19/2020 07:58:Kristen Howard RN) 49e. Infertility Treatment: No (08/19/2020 07:58:Kristen Howard RN) Mother's Height 50b. Height Inches: 65 (08/19/2020 07:51:QS system process) Mother's Weight 51b. Weight at Delivery (lbs): 185 (08/25/2020 06:09:QS system process) Infections Present/Treated 53a. Gonorrhea: No (08/19/2020 07:58:Kristen Howard RN) Results this Hospital Visit : Negative (08/19/2020 07:58:Bev Villar RN) 53b. Syphilis: No (08/19/2020 07:58:Kristen Howard RN) Results this Hospital Visit: NONREACTIVE (08/25/2020 06:37:QS system process) 53c. Chlamydia: No (08/19/2020 07:58:Kristen Howard RN) Results this Hospital Visit: Negative (08/19/2020 07:58:Bev Villar RN) 53d. Hepatitis B: No (08/19/2020 07:58:Kristen Howard RN) Results this Hospital Visit: Negative (08/19/2020 07:58:Bev Villar RN) 53e. Hepatitis C: Negative (08/19/2020 07:58:Bev Villar RN) 53h. Mother Tested for HBsAG: Yes (08/19/2020 07:58:Bev Villar RN) 53i. Date Tested: 02/26/2020 00:00 (08/19/2020 07:58:Bev Villar RN) 53j. Test Result: Negative (08/19/2020 07:58:Bev Villar RN) Obstetric Procedures 54a, b, c. Obstetric Procedures: Ultrasound; NST (08/19/2020 07:58:Kristen Howard RN) Cigarette Smoking Cigarette Smoking: Never Smoker. [id number] (08/19/2020 07:58:Kristen Howard RN) 55a. 3 Months Before Preg - Ci (08/19/2020 07:58:Kristen Howard RN) 55a. Packs: 0 (08/19/2020 07:58:Kristen Howard RN) 55b. 1st Trimester of Preg- Ci (08/19/2020 07:58:Kristen Howard RN) 55b. Packs: 0 (08/19/2020 07:58:Kristen Howard RN) 55c. 2nd Trimester of Preg- Ci (08/19/2020 07:58:Kristen Howard RN) 55c. Packs: 0 (08/19/2020 07:58:Kristen Howard RN) 55d. 3rd Trimester of Preg- Ci (08/19/2020 07:58:Kristen Howard RN) 55d. Packs: 0 (08/19/2020 07:58:Kristen Howard RN) Onset of Labor 56a. PROM >12 Hrs: 0.43 (08/19/2020 07:58:QS system process) 56b. Precipitous Labor <3 Hrs: 5 (08/19/2020 07:58:QS system process) 56c. Prolonged Labor > 20 Hrs: 5 (08/19/2020 07:58:QS system process) 57a. Induction of Labor: N/A (08/19/2020 07:58:Kristen Howard RN) 57c. Non-Vertex Presentation A: Vertex (08/19/2020 07:58:Monalisa Villafuerte RN) 57d. Steroids - Lung Mat: None (08/19/2020 07:58:Kristen Howard RN) 57d. Steroids - Lung Mat: Not Applicable (08/19/2020 07:58:Kristen Howard RN) 57g. Moderate/Heavy Meconium: Clear (08/25/2020 06:52:Kristen Howard RN) 57i. Epidural/Spinal Anesthesia: None (08/19/2020 07:58:Kristen Howard RN) Method of Delivery 58a. Forceps - Unsuccessful A: N/A (08/19/2020 07:58:Monalisa Villafuerte RN) 58b. Vacuum - Unsuccessful A: N/A (08/19/2020 07:58:Monalisa Villafuerte RN) 58c. Presentation at 58c. Presentation at - A : Vertex (08/19/2020 07:58:Monalisa Villafuerte RN) 58c. Presentation at - A : N/A (08/19/2020 07:58:Monalisa Villafuerte RN) 58c. Presentation at - A : Cephalic (08/25/2020 07:12:Monalisa Villafuerte RN) Final Route and Method of Del 58d. Baby A Route/Delivery: Vaginal (08/25/2020 07:18:Monalisa Villafuerte RN) 58e. Trial of Labor Attempted: No (08/19/2020 07:58:Kristen Howard RN) 58e. Trial of Labor Attempted A: N/A (08/19/2020 07:58:Kristen Howard RN) 58e. Trial of Labor Attempted B: N/A (08/19/2020 07:58:Kristen Howard, RN) Maternal Morbidity 59b. 3rd or 4th Degree Lacs: None (08/19/2020 07:58:Rianna Tellez MD (ANDDO)) 59b. 3rd or 4th Degree Lacs: N/A (08/19/2020 07:58:Monalisa Villafuerte RN) Birthweight Baby A: 3474 (08/19/2020 07:58:Elizabeth Gilman RN) 60a. Pounds : 7 (08/19/2020 07:58:QS system process) 60b. Ounces: 11 (08/19/2020 07:58:QS system process) 61. GA at Delivery Baby A: 39.5 (08/19/2020 07:58:Kristen Howard RN) : Full Term- 39- 40.6 Weeks (08/19/2020 07:58:QS system process) 62a. 5 Minute Baby A: 9 (08/19/2020 07:58:QS system process)
--- NOTE | 2020-08-25 09:13 | Delivery Summary ---
Del Sum A-C Datetime Report Generated by CPN: 08/25/2020 09:13 DELIVERY PERSONNEL DELIVERY PERSONNEL: [id number] Delivery Doctor:: Rianna Tellez MD Labor and Delivery Nurse:: Monalisa Villafuerte RNcircular knife machine cutter Nurse:: Elizabeth Gilman RN Manager Fund/[employer]: Yeimy Valle, Additional Personnel: : Kristen Howard RN MATERNAL INFORMATION Delivery Anesthesia: None Medications After Delivery: Pitocin 30 Units in 500ml NS/D5W Meds After Delivery Comment: Pitocin at bolus for 200mL then 95 for remainder of bag Estimated Blood Loss (ml): 50 Maternal Complications: None LABOR SUMMARY EDC: 08/27/2020 00:00 No. Babies in Womb: 1 Attempted: No Labor Anesthesia: None LABOR INFORMATION Reason for Induction: Not Applicable Onset of Labor: 08/25/2020 02:00 Complete Dilatation: 08/25/2020 07:15 Oxytocin: N/A Group B Beta Strep: Negative Antibiotics # of Doses: n/a Steroids Given: None Reason Steroids Not Administered: Not Applicable MEMBRANES Membranes Rupture Method: Artificial Rupture of Membranes: 08/25/2020 06:52 Length of Rupture (hr): 0.43 Amniotic Fluid Color: Clear Amniotic Fluid Amount: Small Amniotic Fluid Odor: None STAGES OF LABOR Stage 1 hr: 5 Stage 1 min: 15 Stage 2 hr: 0 Stage 2 min: 3 Stage 3 hr: 0 Stage 3 min: 3 Total Time in Labor hr: 5 Total Time in Labor min: 21 VAGINAL DELIVERY Episiotomy: None Laceration #1: None Laceration Extension #1: N/A Laceration Repair: Not Applicable BABY A INFORMATION Infant Delivery Date/Time: 08/25/2020 07:18 Method of Delivery: Vaginal Nurse Controlled Delivery: No Born in Route : No : N/A Forceps: N/A Vacuum Extraction: N/A Shoulder Dystocia : No PRESENTATION/POSITION BABY A Presentation: Cephalic Cephalic Presentation: Vertex Vertex Position: Right Occipital Anterior Breech Presentation: N/A PLACENTA INFORMATION BABY A Placenta Delivery Time : 08/25/2020 07:21 Placenta Method of Delivery: Spontaneous Placenta Status: Delivered SCORES BABY A Heart Rate 1 min: >100 bpm Resp Effort 1 min: Good Cry Reflex Irritability 1 min: Cough or Sneeze or Pulls Away Muscle Tone 1 min: Active Motion Color 1 min: Body [place], Extremities Blue Resuscitation Effort 1 min: Tactile Stimulation SCORE 1 MIN: 9 Heart Rate 5 min: >100 bpm Resp Effort 5 min: Good Cry Reflex Irritability 5 min: Cough or Sneeze or Pulls Away Muscle Tone 5 min: Active Motion Color 5 min: Body [place], Extremities Blue Resuscitation Effort 5 min: N/A SCORE 5 MIN: 9 INFANT INFORMATION BABY A Gestational Age at Delivery: 39.5 Gestational Status: Full Term- 39- 40.6 Weeks Infant Outcome : Liveborn Infant Condition : Stable Infant Sex: Female IDENTIFICATION BABY A Verification Date/Time: 08/25/2020 08:21 ID Band Number: [id number] Mother's Name Verified: Yes RN Verifying Infant: Andra Gilman RN Additional Verifying Personnel: Dylan Villafuerte RN WEIGHT/LENGTH BABY A Birthweight (gm): 3474 Infant Weight (lb): 7 Weight (oz): 11 Length (in): 19.00 Length (cm): 48.26 CORD INFORMATION BABY A No. Cord Vessels: 3 Nuchal Cord : N/A Cord Blood Taken: Yes-For Storage (Mom's Blood type +) Suction: None ASSESSMENT BABY A Skin to Skin: Yes BABY B INFORMATION : N/A SIGNATURES Signature: with User ID: [email or web address]
[2020-08-25] MEDS: PRENATAL VITAMIN W DHA CAPSULE PO SCH (11:24)
[2020-08-25] MEDS: DOCUSATE SODIUM 100 MG CAPSULE PO SCH ×2 (11:24→17:22)
[2020-08-25] MEDS: SENNOSIDES/DOCUSATE 8.6-50 MG 1 EACH TABLET PO SCH (11:24)
[2020-08-25] MEDS: FERROUS SULFATE 325 MG TABLET PO SCH ×2 (11:24→17:22)
[2020-08-25] MEDS: FAMOTIDINE 20 MG TABLET PO SCH ×2 (11:24→21:58)
[2020-08-25 13:00] LABS: URINE AMPHETAMINES SCREEN NEGATIVE; URINE BARBITURATES SCREEN NEGATIVE; URINE BENZODIAZEPINES SCREEN NEGATIVE; URINE COCAINE SCREEN NEGATIVE; URINE MARIJUANA (THC) SCREEN NEGATIVE; URINE METHADONE SCREEN NEGATIVE; URINE PHENCYCLIDINE SCREEN NEGATIVE
[2020-08-25] MEDS: IBUPROFEN 800 MG TABLET PO SCH ×2 (15:23→21:58)
[2020-08-26] MEDS: IBUPROFEN 800 MG TABLET PO SCH ×2 (05:51→13:09)
[2020-08-26 07:36] LABS: HEMATOCRIT 30.8 % (36.0-47.0); HEMOGLOBIN 10.3 g/dL (12.0-15.5); MEAN CORPUSCULAR HEMOGLOBIN 25.3 pg (27.0-33.4); MEAN CORPUSCULAR HGB CONC 33.3 g/dL (32.0-36.0); MEAN CORPUSCULAR VOLUME 76 fl (80-97); PLATELET COUNT 209 10^3/uL (150-450); RED BLOOD COUNT 4.05 10^6/uL (3.72-5.28); RED CELL DISTRIBUTION WIDTH 16.3 % (11.5-14.0); WHITE BLOOD COUNT 12.3 10^3/uL (4.0-10.5)
[2020-08-26 08:25] VITALS: BP 120/81
[2020-08-26] MEDS: PRENATAL VITAMIN W DHA CAPSULE PO SCH (10:11)
[2020-08-26] MEDS: DOCUSATE SODIUM 100 MG CAPSULE PO SCH (10:11)
[2020-08-26] MEDS: FAMOTIDINE 20 MG TABLET PO SCH (10:11)
[2020-08-26] MEDS: FERROUS SULFATE 325 MG TABLET PO SCH (10:11)
[2020-08-26] MEDS: SENNOSIDES/DOCUSATE 8.6-50 MG 1 EACH TABLET PO SCH (10:11)
--- NOTE | 2020-08-26 12:37 | PDOC DISCHARGE SUMMARY ---
Impression - Admit/DC Date/PCP Admission Date/Primary Care Provider: 08/25/20 06:22 Discharge Date: 08/26/20 - PP Day#1, pt desires to go home today. Doing well, no complaints. UOB voiding, A+, Rubella Immune. - Additional Information Resuscitation Status: Full Code Discharge Diet: As Tolerated Discharge Activity: Activity As Tolerated, No Lifting Over 10 Pounds, Pelvic R est Prescriptions: Ibuprofen [Motrin 800 mg Tablet] 800 mg PO Q8 #60 tablet Home Medications: Ferrous Sulfate [Ferosul] 325 mg PO DAILY 08/19/20 Pnv 102/Iron/Folate 1/Dss/Dha [Vitafol Fe+ Docusate Combo Pck] 1 each PO DAILY 08/19/20 Ibuprofen [Motrin 800 mg Tablet] 800 mg PO Q8 #60 tablet 08/26/20 HPI Reason(s) for Admission: Onset of Labor Procedures: Ultrasound Intrapartum Procedure(s): Spontaneous Vaginal Delivery Hospital Course Hospital Course: normal 59. Maternal Morbidity (serious complications experinced by the mother associated with labor and delivery: None of the above Results Laboratory Results: WBC 12.3 10^3/uL (4.0-10.5) H 08/26/20 07:07 RBC 4.05 10^6/uL (3.72-5.28) 08/26/20 07:07 Hgb 10.3 g/dL (12.0-15.5) L 08/26/20 07:07 Hct 30.8 % (36.0-47.0) L 08/26/20 07:07 MCV 76 fl (80-97) L 08/26/20 07:07 MCH 25.3 pg (27.0-33.4) L 08/26/20 07:07 MCHC 33.3 g/dL (32.0-36.0) 08/26/20 07:07 RDW 16.3 % (11.5-14.0) H 08/26/20 07:07 Plt Count 209 10^3/uL (150-450) 08/26/20 07:07 Lymph % (Auto) 22.0 % (13-45) 08/25/20 06:37 [place] % (Auto) 6.5 % (3-13) 08/25/20 06:37 Eos % (Auto) 0.9 % (0-6) 08/25/20 06:37 Baso % (Auto) 0.3 % (0-2) 08/25/20 06:37 Absolute Neuts (auto) 7.6 10^3/uL (1.7-8.2) 08/25/20 06:37 Absolute Lymphs (auto) 2.4 10^3/uL (0.5-4.7) 08/25/20 06:37 Absolute Monos (auto) 0.7 10^3/uL (0.1-1.4) 08/25/20 06:37 Absolute Eos (auto) 0.1 10^3/uL (0.0-0.6) 08/25/20 06:37 Absolute Basos (auto) 0.0 10^3/uL (0.0-0.2) 08/25/20 06:37 Seg Neutrophils % 70.3 % (42-78) 08/25/20 06:37 Urine Color YELLOW 08/25/20 06:10 Urine Appearance CLOUDY 08/25/20 06:10 Urine pH 6.0 (5.0-9.0) 08/25/20 06:10 Ur Specific [place] 1.013 08/25/20 06:10 Urine Protein NEGATIVE mg/dL (NEGATIVE) 08/25/20 06:10 Urine Glucose (UA) NEGATIVE mg/dL (NEGATIVE) 08/25/20 06:10 Urine Ketones NEGATIVE mg/dL (NEGATIVE) 08/25/20 06:10 Urine Blood NEGATIVE (NEGATIVE) 08/25/20 06:10 Urine Nitrite NEGATIVE (NEGATIVE) 08/25/20 06:10 Urine Bilirubin NEGATIVE (NEGATIVE) 08/25/20 06:10 Urine Urobilinogen NEGATIVE mg/dL (<2.0) 08/25/20 06:10 Ur Leukocyte Esterase LARGE (NEGATIVE) H 08/25/20 06:10 Urine Ascorbic Acid NEGATIVE (NEGATIVE) 08/25/20 06:10 Urine Opiates Screen NEGATIVE 08/25/20 06:10 Urine Methadone Screen NEGATIVE 08/25/20 06:10 Ur Barbiturates Screen NEGATIVE 08/25/20 06:10 Ur Phencyclidine Scrn NEGATIVE 08/25/20 06:10 Ur Amphetamines Screen NEGATIVE 08/25/20 06:10 U Benzodiazepines Scrn NEGATIVE 08/25/20 06:10 Urine Cocaine Screen NEGATIVE 08/25/20 06:10 U Marijuana (THC) Screen NEGATIVE 08/25/20 06:10 RPR NONREACTIVE (NONREACTIVE) 08/25/20 06:37 Blood Type A POSITIVE 08/25/20 06:37 Antibody Screen NEGATIVE 08/25/20 06:37 Plan Plan of Treatment: d/c home, f/up with [facility] in 4 wks for PP check Time Spent: Less than 30 Minutes
== END 2020-08-26 16:15 | disposition home or self-care (01) | DRG 807 ==
LOC: LC 05:59 → LR 06:22 → 2S 10:40
PROVIDERS: ADMIT Obstetrics & Gynecology; ATTEND Obstetrics & Gynecology
PROC: 10E0XZZ Delivery of Products of Conception, External Approach (ICD-10-PCS; principal; 2020-08-25)
PROC: 10907ZC Drainage of Amniotic Fluid, Therapeutic from Products of Conception, Via Natural or Artificial Opening (ICD-10-PCS; 2020-08-25)
DX: O99.344 Other mental disorders complicating childbirth (principal); Z37.0 Single live birth; F41.9 Anxiety disorder, unspecified; Z03.818 Encounter for observation for suspected exposure to other biological agents ruled out; Z3A.39 39 weeks gestation of pregnancy
CPT/HCPCS: 36415; 80307; 81005; 85025; 85027; 86592; 86850; 86900; 86901; J2590; J3490